=== PATIENT | female | born 1950 | race Caucasian/White ===

== ENCOUNTER 2021-08-22 18:39 | Inpatient (IN) | payer OTHER, SELFPAY ==
--- NOTE | ~2021-08-22 | XR_ITS ---
EXAMINATION: XR surgery orthopedic DATE: 08/23/2021 17:31 INDICATION: Intertrochanteric fracture of proximal right femur. TECHNIQUE: 4 intraoperative fluoroscopic views of right hip were obtained. I was not present. Fluoros copy exposure time was 41 seconds. COMPARISON: Right hip radiographs 08/22/2021 FINDINGS: There is a comminuted intertrochanteric fracture of proximal right femur. The main distal f racture fragment demonstrates near-anatomic alignment status post open reduction internal fixation wi th antegrade intramedullary estela, femoral head/neck screw, and distal interlocking screw. IMPRESSION: 1. Comminuted intertrochanteric fracture of proximal right femur status post open reduction internal fixation. Reviewed, dictated and finalized at location A. IMPRESSION: 1. Comminuted intertrochanteric fracture of proximal right femur status post op en reduction internal fixation.
--- NOTE | ~2021-08-22 | XR_ITS ---
EXAM: XR hip RT 2V w AP pelvis HISTORY: fall/RT hip pain GROIN PAIN COMPARISON: 01/13/2012 FINDINGS: A medication pump or electric stimulator projects over the right lower quadrant. Partially visualized lumbar fusion hardware. Comminuted intertrochanteric right femoral fracture, one dominant fragment is the lesser trochanter. No other fracture. No dislocation. IMPRESSION: Comminuted intertrochanteric right femoral fracture. Reviewed, dictated and finalized at location K.
--- NOTE | ~2021-08-22 | XR_ITS ---
EXAMINATION: XR chest 1V portable Exam Date/Time: 08/22/2021 19:35 CDT CLINICAL HISTORY: preop Comparison: EXAMINATION: XR chest 1V portable Exam Date/Time: 08/22/2021 19:35 CDT CLINICAL HISTORY: preop Comparison: EXAMINATION: XR chest 1V portable Exam Date/Time: 08/22/2021 19:35 CDT CLINICAL HISTORY: preop Comparison: 08/11/18. RESULT: Lines, tubes, and devices: None. Lungs and pleura: No focal consolidation or pneumothorax. 2.8 cm left midlung nodule, new. Cardiomediastinal silhouette: Stable cardiomediastinal silhouette. Other: No acute osseous or upper abdominal finding. IMPRESSION: New pulmonary nodule versus artifact. Consider PA and lateral views the chest for further evaluation. . RESULT: Lines, tubes, and devices: None. Lungs and pleura: Clear. Cardiomediastinal silhouette: Stable cardiomediastinal silhouette. Other: No acute osseous or upper abdominal finding. IMPRESSION: No acute cardiopulmonary process . RESULT: Lines, tubes, and devices: None. Lungs and pleura: Clear. Cardiomediastinal silhouette: Stable cardiomediastinal silhouette. Other: No acute osseous or upper abdominal finding. IMPRESSION: No acute cardiopulmonary process Reviewed, dictated and finalized at location K. IMPRESSION: New pulmonary nodule versus artifact. Consider PA and lateral views the chest f or further evaluation. . RESULT: Lines, tubes, and devices: None. Lungs and pleura: Clear. Cardiomediastinal silhouette: Stable cardiomediastinal silhouette. Other: No acute osseous or upper abdominal finding. IMPRESSION: No acute cardiopulmonary process . RESULT: Lines, tubes, and devices: None. Lungs and pleura: Clear. Cardiomediastinal silhouette: Stable cardiomediastinal silhouette. Other: No acute osseous or upper abdominal finding.
--- NOTE | ~2021-08-22 | CT_ITS ---
EXAMINATION: CT brain wo con INDICATION: Transient alteration of awareness COMPARISON: 06/22/2009 TECHNIQUE: Standard unenhanced head CT. The dose-length product (DLP) was 605.33 mGy-cm. The mA was a djusted according to patient size. Iterative reconstruction technique was employed. FINDINGS: There is no intracranial hemorrhage, acute infarction, or abnormal mass lesion. The ventric les are normal. There is no abnormal mass effect or midline shift. The hicks-white matter differentiat ion is normal. The basal cisterns are patent. Intracranial calcified cerebral atherosclerosis is noted. Changes in the globes are likely from ocula r lens surgery. The paranasal sinuses, mastoids and calvarium are normal. IMPRESSION: 1. No acute intracranial abnormality. Reviewed, dictated and finalized at location B.
--- NOTE | ~2021-08-22 | US_ITS ---
EXAMINATION: US carotid duplex BI DATE: 08/24/2021 18:34 INDICATION: Syncope. TECHNIQUE: Grayscale, color Doppler, and pulsed Doppler images of the cervical carotid arteries were obtained. The degree of vessel stenosis is placed in one of the following categories: normal, <50%, 5 0-69%, >=70% but less than near-occlusion, near-occlusion, or total occlusion. Note that percent sten osis relative to normal distal artery lumen diameter is indirectly measured from velocity measurement s as described by Joshua, et al. Radiology 2003; 229:340-346. COMPARISON: Ultrasound 09/12/2009 FINDINGS: RIGHT: The right common carotid artery (CCA) peak systolic velocity (PSV) is 117 cm/s. The right internal ca rotid artery (ICA) PSV is 141 cm/s. The right ICA end-diastolic velocity (EDV) is 31 cm/s. The right ICA/CCA PSV ratio is 1.2. Grayscale and color Doppler images yield an estimate of <50% diameter reduc tion from plaque in the ICA. There is antegrade flow in the right vertebral artery. LEFT: The left CCA PSV is 129 cm/s. The left ICA PSV is 76 cm/s. The left ICA EDV is 25 cm/s. The left ICA/ CCA PSV ratio is 0.6. Grayscale and color Doppler images yield an estimate of <50% diameter reduction from plaque in the ICA. There is antegrade flow in the left vertebral artery. IMPRESSION: 1. <50% stenosis in the right internal carotid artery. 2. <50% stenosis in the left internal carotid artery. Reviewed, dictated and finalized at location A.
[2021-08-22 18:43] VITALS: BP 160/96; PULSE 76; RESP 16; TEMP 36.2; O2SAT 96
--- NOTE | 2021-08-22 19:32 | ECG_ITS ---
Measurements Intervals [place] Rate: 93 P: 83 VT: 171 QRS: 55 QRSD: 100 T: 53 QT: 354 QTc: 441 Interpretive Statements SINUS RHYTHM POSSIBLE LEFT ATRIAL ENLARGEMENT BORDERLINE ECG Electronically Signed On 08-22-2021 20:05:04 CDT by Jovani Conde D.O.
[2021-08-22] MEDS: SODIUM CHLORIDE 0.9% IV 1,000 ML 150 ML IV CONT (20:02)
[2021-08-22] MEDS: MORPHINE SULFATE (*CRX) 4 MG/ML INJ IV PUSH (20:03)
[2021-08-22 20:35] LABS: Appearance Urine Cloudy (Clear); Bilirubin Urine 1+ (Negative); Blood Urine Negative (Negative); Color Urine Yellow (Yellow); Glucose Urine UA Negative (Negative); Ketones Urine Negative (Negative); Leukocyte Esterase Ur Negative LEU/UL (Negative); Nitrate Urine Negative (Negative); Protein Urine Negative (Negative); Specific Grav Ur 1.015 (1.001-1.035)
[2021-08-22 20:36] LABS: Basophils Percent Auto 0.3 % (0.2-1.2); Eosinophils Percent Auto 0.2 % (0-4.4); Hematocrit 34.5 % (37.0-47.0); Hemoglobin 12.4 g/dL (12.0-15.0); Immature Granulocyte Absolute 0.05 K/mm3 (0.00-0.031); Immature Granulocyte Percent A 0.5 % (0-0.5); Immature Platelet Fraction Pct 1.5 % (0.9-11.2); Lymphocytes Absolute Auto 0.44 K/mm3 (0.9-3.2); Lymphocytes Percent Auto 4.7 % (18.3-44.2); Mean Corpuscular HGB Conc 35.9 g/dl (32-36); Mean Corpuscular Volume 89.1 fl (80-100); Mean Platelet Volume 8.3 fl (7.4-10.4); Monocytes Absolute Auto 0.2 K/mm3 (0.1-0.6); Monocytes Percent Auto 2.5 % (2.6-8.5); Neutrophils Absolute Auto 8.6 K/mm3 (1.3-6.7); Neutrophils Percent Auto 91.8 % (45.5-73.1); Platelet Count Result 187 k/mm3 (150-375); Red Blood Count 3.87 M/mm3 (4.2-5.4); Red Cell Distribution Width 14.4 % (11.5-14.5); White Blood Count 9.3 K/mm3 (4.5-10.0)
[2021-08-22 20:42] LABS: Amorphous Sediment Urine Few; Squamous Epithelial Cell Urine Rare /hpf (Few)
[2021-08-22 20:46] LABS: Alanine Aminotransferase 12 U/L (4-35); Albumin Level 4.1 g/dL (3.5-5.1); Alkaline Phosphatase 152 U/L (38-126); Anion Gap 4 mmol/L (8-16); Aspartate Amino Transferase 25 U/L (14-36); Bilirubin,Total 1.1 mg/dL (0.2-1.3); Blood Urea Nitrogen 12 mg/dL (7-17); Calcium 11.1 mg/dL (8.4-10.2); Carbon Dioxide 25 mmol/L (22-30); Chloride 95 mmol/L (98-107); Estimated Glomerular Filt Rate > 60; Glucose 129 mg/dL (65-110); Potassium 3.4 mmol/L (3.4-5.0); Sodium 124 mmol/L (137-145)
[2021-08-22 20:47] LABS: Add Urine Microscopic? YES
[2021-08-22 20:57] LABS: INR 1.2; Prothrombin Time 14.9 Seconds (11.1-14.7)
--- NOTE | 2021-08-22 21:01 | ED.FALL ---
HPI - Fall General Chief Complaint: Fall Stated Complaint: FALL/RT HIP DEFORMITY Time Seen by Provider: 08/22/21 18:48 Source: patient Mode of arrival: EMS Limitations: no limitations History of Present Illness HPI Narrative: 71-year-old with a history of COPD, hypertension, anxiety here with complaints of right hip pain. Patient states that she was trying to sweet pickled fruit maker something from the floor lost her balance and fell on the right hip she denies any head and neck injury. She denies any other injuries. complaint: fall Onset (ago): hour(s) (1) Fall from: standing Fall witnessed: yes, by family Place fall occurred: home Loss of consciousness: none Symptoms prior to fall: none Context: tripped/slipped Location of injury: pelvis (right hip) Severity: moderate Quality: aching Associated symptoms (after fall): denies Related Data Home Medications Medication Instructions Recorded Confirmed guanfacine 1 mg tablet 1 mg PO .COMPLEX 03/16/19 08/17/21 Calcium 600 + D(3) 600 tablet DAILY 04/26/19 08/17/21 cholecalciferol (vitamin D3) 5,000 unit PO DAILY 04/26/19 08/17/21 aspirin 81 mg tablet,delayed 81 mg PO DAILY 01/22/21 08/17/21 release Allergies Allergy/AdvReac Type Severity Reaction Status Date / Time No Known Allergies Allergy Verified 08/22/21 18:45 Review of Systems Review of Systems: All systems reviewed & are unremarkable except as noted in HPI and below Constitutional: Constitutional: Reports no additional constitutional complaints Eyes: Eyes: Reports no additional eye complaints ENT: Reports system reviewed and no additional complaints, except as documented Cardiovascular: Cardiovascular: Reports no additional cardiovascular complaints Respiratory: Respiratory: Reports no additional respiratory complaints Gastrointestinal: Gastrointestinal: Reports no additional gastrointestinal complaints Genitourinary: Genitourinary: Reports no additional female genitourinary complaints Musculoskeletal: Musculoskeletal: Reports as per HPI Integumentary/Breasts: Skin/Breast: Reports system reviewed and no additional complaints, except as docu Neurologic: Reports system reviewed and no additional complaints, except as documented PMFSH Past Medical History Medical History Actinic keratosis of multiple sites of head and neck Anxiety Asthma with COPD Chronic hyponatremia Encounter for screening colonoscopy Essential (primary) hypertension Ganglion cyst Hemochromatosis Hyperlipidemia, unspecified Major depressive disorder, recurrent, in remission, unspecified Meniere's disease, bilateral Nicotine dependence, other tobacco product, uncomplicated Osteoporosis Took Fosamax 2014 - 11/2019 Polyosteoarthritis, unspecified Postmenopausal Presence of implanted infusion pump Ventral hernia Surgical History Surgical History History of carpal tunnel release Family History Family History Sibling Patient's sister is in good health Family history of malignant neoplasm Breast cancer, Onset Age: 72 Lorenza in 06/2013 Heart disease brother Melanoma in situ of cheek, Onset Age: 68 brother: Gregor @ 69 Mother Family history of lung cancer, Onset Age: 65 oat cell carcinoma: dx'd passed @ 65 y/o Patient's mother is Family history of malignant neoplasm Hypertension Depression Father , from kidney failure @ 90 y/o: lived w/ his second in [place] Family history of congenital heart disease Family history of cardiovascular disease, Onset Age: 91 Angina at rest Heart disease Social History Social History Smoking packs per day: 0.75 Smoking cigarettes per day: 15.0 Years smoked: 54 Smoking pack-years: 40.50 Smoking status:
[2021-08-22 21:14] LABS: SARS-CoV-2 RNA PCR Negative
[2021-08-22 21:23] VITALS: BP 157/90; PULSE 88; RESP 16; O2SAT 100
[2021-08-22] MEDS: HYDROmorphone HCL INJ (*CRX) 1 MG/ML SYR IV PUSH (21:57)
[2021-08-22 22:20] VITALS: BP 157/94; PULSE 90; RESP 16; O2SAT 97
[2021-08-22 23:26] VITALS: BP 128/72; PULSE 88; RESP 16; TEMP 36.1; O2SAT 92; BMI 25.8
--- NOTE | 2021-08-22 23:54 | ADMGEN ---
This patient, Poonam Sousa, was admitted to [facility] Surg Room 321-01 at 22:50 . Patient/family oriented to hospital policies and general routines including ID bracelet, bed and alarms, visiting hours, pain management, procedures, bathroom and other care routines, personal items, smoking policy, room service/diet, and visiting hours. Information on how to activate the Rapid Response Team has been discussed. Patient/Family are encouraged to report perceived risks to care and to ask questions if they do not understand what they are told or what they should do.
[2021-08-23] VITALS (21 sets, daily range): BP systolic 123–149; BP diastolic 65–82; PULSE 73–101; RESP 14–19; TEMP 36.1–36.9; O2SAT 82–100
[2021-08-23] MEDS: SODIUM CHLORIDE 0.9% IV 1,000 ML 75 ML IV CONT ×2 (02:37→13:36)
[2021-08-23] MEDS: ALBUTEROL SULFATE NEB 2.5 MG/0.5 ML INH 5 MG INHALATION ×3 (02:41→20:05)
[2021-08-23] MEDS: IPRATROPIUM BR 0.02% INH SOLN 0.5 MG/2.5 ML VIAL INHALATION ×3 (02:41→20:05)
[2021-08-23] MEDS: MORPHINE SULFATE (*CRX) 4 MG/ML INJ IV PUSH (06:21)
--- NOTE | 2021-08-23 07:28 | PM.CNOR ---
Assessment and Plan Assessment and plan (1) Intertrochanteric fracture of right hip: Qualifiers: Encounter type: initial encounter Fracture type: closed Fracture alignment: displaced Qualified Code(s): S72.141A - Displaced intertrochanteric fracture of right femur, initial encounter for closed fracture Code(s): S72.141A - Displaced intertrochanteric fracture of right femur, initial encounter for closed fracture Status: Acute Assessment and Plan: New patient evaluation for chief complaint History, physical exam and radiographs reviewed with the patient. Discussed the condition, nature, etiology and course of natural history with the patient. Treatment options including surgical and nonoperative treatment were reviewed. Risks and benefits of each as well as alternatives reviewed. The patient's questions were answered. Conservative treatment ice, pain med, mechanical dvt px. Surgery when stable. Discussed nonoperative and operative treatment options with the patient. Risks and benefits of each as well as alternatives were reviewed. All of the patient's questions were answered. The risks of surgery reviewed including but not limited to: Neurovascular damage, wound complication, infection, blood clot, pulmonary embolus, stroke, myocardial infarction, and anesthetic risks up to and including . Continued pain and possible dysfunction were explained. Specific risks of the procedure including later recurrence of deformity. No guarantees were offered. If hardware used, discussed risk of failure/ breakage and possible need for removal. If complications occur, the patient understands the need for further treatment, possible further surgery. Patient verbalizes understanding and wishes to proceed. PLAN:RT hip trochanteric nail History of Present Illness HPI Consult date: 08/23/21 Requesting physician: Zoltan Jeter MD Chief complaint: Right Hip Fracture Narrative: 71 yo woman fell in kitchen last night. RT hip pain. H/O falls recently. Unable to walk. RT hip fx on xray. Review of Systems Review of Systems: All systems reviewed & are unremarkable except as noted in HPI and below Constitutional: Constitutional: Reports no additional constitutional complaints Eyes: Eyes: Reports no additional eye complaints ENT: Reports system reviewed and no additional complaints, except as documented Cardiovascular: Cardiovascular: Reports no additional cardiovascular complaints Respiratory: Respiratory: Reports no additional respiratory complaints Gastrointestinal: Gastrointestinal: Reports no additional gastrointestinal complaints Genitourinary: Genitourinary: Reports no additional female genitourinary complaints Musculoskeletal: Musculoskeletal: Reports as per HPI Integumentary/Breasts: Skin/Breast: Reports system reviewed and no additional complaints, except as docu Neurologic: Reports system reviewed and no additional complaints, except as documented PMFSH Past Medical History Medical History (Updated 08/23/21 @ 07:31 by Mani Wasserman MD) Actinic keratosis of multiple sites of head and neck Anxiety Asthma with COPD Chronic hyponatremia Encounter for screening colonoscopy Essential (primary) hypertension Ganglion cyst Hemochromatosis Hyperlipidemia, unspecified Intertrochanteric fracture of right hip Major depressive disorder, recurrent, in remission, unspecified Meniere's disease, bilateral Nicotine dependence, other tobacco product, uncomplicated Osteoporosis Took Fosamax 11/2019 Polyosteoarthritis, unspecified Postmenopausal Presence of implanted infusion pump Ventral hernia Surgical History Surgical History History of carpal tunnel release Family History Family History Sibling Patient's sister is in good health Family history of malignant neoplasm Breast canc
[2021-08-23 08:16] LABS: Anion Gap 4 mmol/L (8-16); Blood Urea Nitrogen 11 mg/dL (7-17); Calcium 10.4 mg/dL (8.4-10.2); Carbon Dioxide 25 mmol/L (22-30); Chloride 96 mmol/L (98-107); Estimated Glomerular Filt Rate > 60; Glucose 101 mg/dL (65-110); Potassium 3.2 mmol/L (3.4-5.0); Sodium 125 mmol/L (137-145)
--- NOTE | 2021-08-23 08:18 | PC.NURSE ---
pt wishes to wait on home meds at this time due to being NPO, will take clonazepam
[2021-08-23] MEDS: clonazePAM (*CRX) 0.5 MG TABLET PO ×2 (08:19→23:25)
--- NOTE | 2021-08-23 08:38 | PM.IMHP ---
H&P: HPI History of Present Illness Date/Time: 08/23/21 08:38 Chief Complaint: fall, hip pain Narrative: Pt is a 71 yo female w/ hx of HTN, HLD, COPD, depression, anxiety, osteoporosis, chronic hyponatremia, hemochromatosis, current smoker, who presented to the yesterday evening with right hip pain after a mechanical fall. Pt states she bent down to grab the trash when she lost her balance and fell, landing on her R hip. She was unable to get up so she called the ambulance and was brought to the ED. She currently has no pain with rest but significant pain with any type of movement. No preceding symptoms to the fall including cp, sob, dizziness. She saw her pcp last week and received a call this past Friday that she had a UTI and Macrobid was called in which she picked up yesterday but has not started yet. She admits to intermittent dysuria but denies fever, chills, N/V, abd pain. No recent cough or cold symptoms. Preliminary workup in the ED significant for comminuted right intertrochanteric femur fracture. Orthopedic surgery was consulted and patient was admitted as inpatient status for anticipated greater than two midnights. Review of Systems Review of Systems: General: Denies fevers, chills, bodyaches, or fatigue Eyes: Denies vision changes or eye pain ENT: Denies nasal congestion or sore throat Respiratory: Denies cough or shortness of breath Cardiovascular: Denies chest pain, palpitations, or lower extremity edema Gastrointestinal: Denies abdominal pain, vomiting, or diarrhea Genitourinary: + dysuria, denies urinary frequency Musculoskeletal: +right hip pain Neurological: Denies headache, paraesthesias, or motor weakness Integumentary: Denies rash Psychiatric: Denies SI/[facility] Past Medical History Medical History (Updated 08/23/21 @ 08:51 by Candie Hightower PA-C) Actinic keratosis of multiple sites of head and neck Anxiety Asthma with COPD Chronic hyponatremia Essential (primary) hypertension Hemochromatosis Hyperlipidemia, unspecified Intertrochanteric fracture of right hip Major depressive disorder, recurrent, in remission, unspecified Meniere's disease, bilateral Nicotine dependence, other tobacco product, uncomplicated Osteoporosis Took Fosamax 11/2019 Polyosteoarthritis, unspecified Postmenopausal Presence of implanted infusion pump Ventral hernia Surgical History Surgical History History of carpal tunnel release History of tonsillectomy History of ventral hernia repair Previous back surgery Family History Family History Sibling Patient's sister is in good health Family history of malignant neoplasm Breast cancer, Onset Age: 72 Lorenza in 06/2013 Heart disease brother Melanoma in situ of cheek, Onset Age: 68 brother: Gregor @ 69 Mother Family history of lung cancer, Onset Age: 65 oat cell carcinoma: dx'd passed @ 65 y/o Patient's mother is Family history of malignant neoplasm Hypertension Depression Father , from kidney failure @ 90 y/o: lived w/ his second in [place] Family history of congenital heart disease Family history of cardiovascular disease, Onset Age: 91 Angina at rest Heart disease Social History Social History (Updated 08/23/21 @ 08:48 by Candie Hightower PA-C) Smoking packs per day: 0.75 Smoking cigarettes per day: 15.0 Years smoked: 54 Smoking pack-years: 40.50 Smoking status: Current every day smoker Tobacco type: cigarettes Second hand tobacco smoke exposure: Yes Alcohol intake: never Alcohol use details: pt states that she has no alcoholic beverages Substance use: never Additional living arrangements comments: passed recently May 2021, now lives alone but is selling house and moving to [facility] with her daughter Additional
[2021-08-23] MEDS: HYDROmorphone HCL INJ (*CRX) 1 MG/ML SYR IV PUSH (10:54)
--- NOTE | 2021-08-23 11:50 | PC.NURSE ---
surgery SBAR faxed
--- NOTE | 2021-08-23 14:56 | SUR.PREOP ---
1440- PT ARRIVED TO PRE OP AREA. VITALS OBTAINED. OXYGEN LEVELS 87-89% ON ROOM AIR. HAD PT TAKE SOME DEEP BREATHS AND CLEAR HER THROAT. PT OXYGEN LEVELS STILL 88%. PT PLACED ON 2L NC. OXYGEN LEVELS 93%.
[2021-08-23] MEDS: ACETAMINOPHEN 500 MG TABLET 1000 MG PO (15:07)
[2021-08-23] MEDS: KETOROLAC 15 MG/ML VIAL (*BKC) IV PUSH (15:08)
[2021-08-23] MEDS: TRANEXAMIC ACID 1,000MG/ISO100 1,000 MG/100 ML BAG 200 MG IVPB (15:08)
--- NOTE | 2021-08-23 15:27 | PCCCNOTE ---
On 08/23/21, the student, [Thelma Mondragon], provided care and completed [facility] documentation on this patient. I have reviewed the student's documentation and agree with the findings.
--- NOTE | 2021-08-23 16:01 | WPDANESEPPF ---
Anes - Initial Pre Proc Eval Procedure: Operation Date: 08/23/21 16:00 Proposed Procedures p Right Intertrochanteric Nail - Mani Wasserman MD Date/Time: 08/23/21 16:01 Surgeon: Candie Hightower PA-C Pre Op Diagnosis: Right Hip Fracture Patient Data Age: 71 Gender: F Height: 1.5 m Weight: 58 kg Last Vital Signs Temp 36.7 C 08/23/21 14:53 Pulse 89 08/23/21 14:53 Resp 16 08/23/21 14:53 BP 140/65 08/23/21 14:53 Pulse Ox 93 08/23/21 14:53 Allergies Allergy/AdvReac Type Severity Reaction Status Date / Time No Known Allergies Allergy Verified 08/23/21 14:52 Home Medications Medication Instructions Recorded Confirmed Type guanfacine 1 mg tablet 1 mg PO .COMPLEX 03/16/19 08/22/21 History Calcium 600 + D(3) 600 tablet DAILY 04/26/19 08/22/21 History cholecalciferol (vitamin D3) 5,000 unit PO DAILY 04/26/19 08/22/21 History hydrochlorothiazide 25 mg tablet 25 mg PO DAILY #90 tablet 12/08/20 08/22/21 Rx amitriptyline 25 mg tablet See Rx Instructions .ROUTE 12/21/20 08/22/21 Rx .COMPLEX #180 tablet fluticasone 500 mcg-salmeterol 50 1 inh INHALATION Q12H #60 ea 01/19/21 08/22/21 Rx mcg/dose blistr powdr for inhalation aspirin 81 mg tablet,delayed 81 mg PO DAILY 01/22/21 08/22/21 History release pravastatin 20 mg tablet 20 mg PO DAILY #90 tablet 02/12/21 08/22/21 Rx clonazepam 0.5 mg tablet 0.5 mg PO BID PRN #60 tablet 02/15/21 08/22/21 Rx pantoprazole 40 mg tablet,delayed 40 mg PO QAM #90 tablet 03/06/21 08/22/21 Rx release potassium chloride 10 mEq 10 meq PO DAILY #90 cap 04/30/21 08/22/21 Rx capsule,extended release albuterol sulfate 90 mcg/actuation 2 puff INHALATION Q4H PRN #8.5 g 05/01/21 08/22/21 Rx aerosol inhaler carvedilol 25 mg tablet 25 mg PO BID #180 tablet 06/21/21 08/22/21 Rx losartan 100 mg tablet 100 mg PO DAILY #90 tablet 06/21/21 08/22/21 Rx sertraline 100 mg tablet 200 mg PO DAILY #180 tablet 07/19/21 08/22/21 Rx nitrofurantoin 100 mg PO Q12H 5 Days #10 cap 08/18/21 08/22/21 Rx monohydrate/macrocrystals 100 mg capsule Laboratory Tests 08/22/21 08/22/21 08/22/21 20:18 20:20 20:20 WBC 9.3 K/mm3 K/mm3 (4.5-10.0) RBC 3.87 M/mm3 L M/mm3 (4.2-5.4) Hgb 12.4 g/dL g/dL (12.0-15.0) Hct 34.5 % L % (37.0-47.0) MCV 89.1 fl fl (80-100) MCH 32.0 pg pg (26-34) MCHC 35.9 g/dl g/dl (32-36) RDW 14.4 % % (11.5-14.5) Plt Count 187 k/mm3 k/mm3 (150-375) MPV 8.3 fl fl (7.4-10.4) Immature Gran % (Auto) 0.5 % % (0-0.5) Neut % (Auto) 91.8 % H % (45.5-73.1) Lymph % (Auto) 4.7 % L % (18.3-44.2) [place] % (Auto) 2.5 % L % (2.6-8.5) Eos % (Auto) 0.2 % % (0-4.4) Baso % (Auto) 0.3 % % (0.2-1.2) Lymph # (Auto) 0.44 K/mm3 L K/mm3 (0.9-3.2) [place] # (Auto) 0.2 K/mm3 K/mm3 (0.1-0.6) Eos # (Auto) 0.0 K/mm3 K/mm3 (0-0.3) Baso # (Auto) 0.0 K/mm3 K/mm3 (0.0-0.1) Abs Immat Gran (auto) 0.05 K/mm3 H K/mm3 (0.00-0.031) Absolute Neuts (auto) 8.6 K/mm3 H K/mm3 (1.3-6.7) Absolute Nucleated RBC 0.0 K/mm3 K/mm3 (0.0-0.012) Nucleated RBC % 0.0 % % (0.0-0.2) % Immature Plt Fraction 1.5 % % (0.9-11.2) PT 14.9 Seconds H Seconds (11.1-14.7) INR 1.2 Sodium Potassium Chloride Carbon Dioxide Anion Gap BUN Creatinine Estim Creat Clear Calc Estimated GFR Glucose Calcium Total Bilirubin AST ALT Alkaline Phosphatase Total Protein Albumin Urine Color Urine Appearance Urine pH Ur Specific [place] Urine Protein U
[2021-08-23] MEDS: ceFAZolin 2 GM/D5W 50 ML 2 GM/50 ML BAG IVPB (16:26)
--- NOTE | 2021-08-23 17:49 | P.OP_ITS ---
Procedure Note - Detailed Date of Procedure 08/23/21 Pre-op Diagnosis Right Hip Fracture, intertrochanteric Post-op Diagnosis Same Procedure Performed Trochanteric nail right hip Surgeon Mani Wasserman MD Tire Mold Tester 1st speech language pathology assistant Anesthesia General Indications 71-year-old woman with right hip intertrochanteric fracture. Presents for operative treatment. Full discussion with the patient regarding risks, benefits and alternatives of surgery. Patient and daughter questions answered and verbalized understanding. They would like to proceed. Consent given. Description of Procedure After informed consent the operative extremity was marked in the preoperative holding area. Patient received intravenous antibiotics. The patient was taken to the operative room, placed in the supine position, general anesthesia induced by the anesthesia team, and was placed on a fracture table with longitudinal traction applied to the right leg. The hip fracture was reduced to near anatomic position and verified with image intensification. A time-out was performed confirming the patient, site of the surgery and plan. The right lower extremity was prepped and draped sterilely from the knee to the iliac crest region using a ChloraPrep skin solution. Incision was made just proximal to greater trochanter down to the subcutaneous tissues. Hemostasis controlled with electrocautery. Blunt dissection through the fascia to the tip of the greater trochanter. A starter awl was placed at the tip of the greater trochanter into the medullary canal of the femur. This was checked with image intensification and was in good position. Intramedullary guide estela positioned. A one-step hand reaming done proximally. Intramedullary canal was reamed with a 12.5 millimeter flexible reamer. Neck angle selected off of preoperative radiographs temp plating. 125 degree 11mm X 21.5cm Nail opened on the back table and assembled. This was then inserted over the guide estela to the correct depth. Guide estela removed. Lag screw was then placed with a stab incision over the lateral femur using a 10 blade knife. Blunt dissection down to the lateral side of the bone. Soft tissue protectors placed. Guide pin placed in the center center position of the femoral head and measured. 90 millimeter x 10.5 millimeter lag screw placed to correct depth and verified with image intensification. Traction released from the leg and compression of the fracture performed with the external compression device. Distal locking of the nail then performed. Stab incision made lateral distal thigh. Blunt dissection down lateral side of the femur. Soft tissue protector placed. Femur drilled from lateral to medial through the distal nail. Distal femur measured and the appropriate size screw placed (34mm). Image intensification confirmed the placement through the locking hole. Final image intensification confirmed reduction of the fracture and placement of the hardware. Wounds then thoroughly irrigated with antibiotic solution. Fascia repaired with 0 Vicryl interrupted suture. Subcutaneous tissue repaired with 00 Vicryl interrupted suture and skin repaired with anjali. Sterile dressings applied. Patient then awoke from anesthesia, extubated, taken to recovery room stable condition. All sponge, needle and instrument counts correct at the end the case. Implants Arthrex 125 degree 11 mm short nail with 90 mm lag screw and 34 mm distal locking screw Estimated Blood Loss 50 Drains No Packing No Pathology None sent Complications None Condition Stable Disposition PACU
[2021-08-23] MEDS: LACTATED RINGERS 1,000 ML 30 ML IV CONT (18:08)
--- NOTE | 2021-08-23 18:57 | PC.NURSE ---
report received from PACU, pt is doing well, daughter is in room waiting for pt, updated
--- NOTE | 2021-08-23 19:20 | PC.NURSE ---
pt arrived back from OR via bed, resting comfortably
[2021-08-23] MEDS: FLUTICASONE/SALMETEROL 230-21 MCG INHALER 1 PUFF 2 PUFF INHALATION (20:05)
[2021-08-23] MEDS: HYDROcodone/acetaminophen (*CRX) 5-325 MG TABLET 1 TAB PO (21:28)
[2021-08-23] MEDS: guanFACINE HCL 1 MG TABLET PO (21:28)
[2021-08-23] MEDS: AMITRIPTYLINE HCL 25 MG TABLET 50 MG BY MOUTH (21:29)
[2021-08-23] MEDS: FAMOTIDINE 20 MG TABLET PO (21:29)
[2021-08-23] MEDS: ACETAMINOPHEN 325 MG TABLET 650 MG PO (23:55)
[2021-08-24] VITALS (14 sets, daily range): BP systolic 105–141; BP diastolic 69–75; PULSE 68–83; RESP 18–20; TEMP 36.1–36.5; O2SAT 92–99
--- NOTE | 2021-08-24 | ECHO_ITS ---
Patient Info Name: Poonam Sousa Age: 71 years : 1950 Gender: Female Ht: 59 in Wt: 127 lbs BSA: 1.56 m2 HR: 78 bpm BP: 140 / 72 mmHg Technical Quality: Fair Exam Date: 08/24/2021 1:53 PM Exam Location: [facility] Exam Room: 321 Patient Status: Inpatient Admit Date: 08/22/2021 Staff Ordering Physician: Mani Wasserman MD Acid Recovery Operator: Mayda Lee RDCS Attending Provider: Dai Gaspar Referring Physician: Lux ELIZALDE; Exam Type: CA echo doppler color flow Study Info Indications - SYNCOPE Complete two-dimensional, color flow and Doppler transthoracic echocardiogram is performed. History/Risk Factors Hypertension: Yes Summary 1. Complete two-dimensional, color flow and Doppler transthoracic echocardiogram is performed. 2. Left ventricular chamber dimension is normal. 3. Left ventricular systolic function is normal, estimated at 65-70%. 4. The left ventricular diastolic function is grade I diastolic dysfunction. 5. E/e' 11 is mildly elevated. 6. Left atrial chamber dimension is mildly enlarged. 7. There is mild aortic valve sclerosis. 8. The mitral valve has moderately calcified annulus. 9. There is mild tricuspid valve regurgitation. 10. No pulmonary hypertension, estimated pulmonary arterial systolic pressure is 39 mmHg. Left Ventricle E/e' 11 is mildly elevated. Left ventricular chamber dimension is normal. Left ventricular systolic function is normal, estimated at 65-70%. The left ventricular diastolic function is grade I diastolic dysfunction. Right Ventricle Right ventricular chamber dimension is normal. Right ventricular systolic function is normal. Left Atria Left atrial chamber dimension is mildly enlarged. Right Atria Right atrial chamber dimension is normal. Aortic Valve The aortic valve is trileaflet. There is mild aortic valve sclerosis. There is no aortic valve stenosis. There is no aortic valve regurgitation. Pulmonic Valve There is no pulmonic regurgitation. Mitral Valve The mitral valve has moderately calcified annulus. There is no mitral valve stenosis. There is no mitral valve regurgitation. Tricuspid Valve There is mild tricuspid valve regurgitation. No pulmonary hypertension, estimated pulmonary arterial systolic pressure is 39 mmHg. Pericardium/Pleural There is no pericardial effusion. Inferior Vena Cava Normal inferior vena cava with >50% collapse upon inspiration consistent with normal right atrial pressure, 5 mmHg. Aorta The aortic root size at the sinus of Valsalva is normal. Left Ventricular Outflow Tract Name Value Normal LVOT 2D LVOT Diameter 2.0 cm LVOT Doppler LVOT Peak Gradient 7 mmHg LVOT Mean Gradient 4 mmHg LVOT VTI 24 cm LVOT VTI/AV VTI Ratio 0.8 LVOT Stroke Volume 74 ml LVOT CO 17.0 l/min LVOT CI 10.9 l/min/m2 Pulmonic Valve
[2021-08-24] MEDS: SODIUM CHLORIDE 0.9% IV 1,000 ML 125 ML IV CONT ×3 (00:32→21:04)
[2021-08-24] MEDS: IPRATROPIUM BR 0.02% INH SOLN 0.5 MG/2.5 ML VIAL INHALATION ×4 (02:24→19:49)
[2021-08-24] MEDS: ALBUTEROL SULFATE NEB 2.5 MG/0.5 ML INH 5 MG INHALATION ×4 (02:25→19:49)
[2021-08-24] MEDS: ACETAMINOPHEN 325 MG TABLET 650 MG PO (06:35)
[2021-08-24 07:04] LABS: Basophils Percent Auto 0.2 % (0.2-1.2); Eosinophils Percent Auto 0.9 % (0-4.4); Hematocrit 28.7 % (37.0-47.0); Immature Granulocyte Absolute 0.02 K/mm3 (0.00-0.031); Immature Granulocyte Percent A 0.5 % (0-0.5); Lymphocytes Absolute Auto 0.41 K/mm3 (0.9-3.2); Lymphocytes Percent Auto 9.3 % (18.3-44.2); Mean Corpuscular HGB Conc 34.8 g/dl (32-36); Mean Corpuscular Hemoglobin 32.2 pg (26-34); Mean Corpuscular Volume 92.3 fl (80-100); Mean Platelet Volume 8.3 fl (7.4-10.4); Monocytes Absolute Auto 0.2 K/mm3 (0.1-0.6); Monocytes Percent Auto 4.8 % (2.6-8.5); Neutrophils Absolute Auto 3.7 K/mm3 (1.3-6.7); Neutrophils Percent Auto 84.3 % (45.5-73.1); Platelet Count Result 100 k/mm3 (150-375); Red Blood Count 3.11 M/mm3 (4.2-5.4); Red Cell Distribution Width 14.8 % (11.5-14.5); White Blood Count 4.4 K/mm3 (4.5-10.0)
[2021-08-24 07:30] LABS: Potassium 3.6 mmol/L (3.4-5.0)
[2021-08-24 07:31] LABS: Alanine Aminotransferase 10 U/L (4-35); Albumin Level 2.9 g/dL (3.5-5.1); Alkaline Phosphatase 100 U/L (38-126); Anion Gap 5 mmol/L (8-16); Aspartate Amino Transferase 27 U/L (14-36); Bilirubin,Total 0.6 mg/dL (0.2-1.3); Blood Urea Nitrogen 9 mg/dL (7-17); Calcium 9.2 mg/dL (8.4-10.2); Carbon Dioxide 22 mmol/L (22-30); Chloride 100 mmol/L (98-107); Estimated Glomerular Filt Rate > 60; Glucose 99 mg/dL (65-110); Sodium 127 mmol/L (137-145)
[2021-08-24] MEDS: POTASSIUM CHLORIDE 10 MEQ TABLET.ER PO (08:12)
[2021-08-24] MEDS: HYDROmorphone HCL INJ (*CRX) 1 MG/ML SYR IV PUSH (08:12)
[2021-08-24] MEDS: hydroCHLOROthiazide 25 MG TABLET PO (08:12)
[2021-08-24] MEDS: PANTOPRAZOLE 40 MG TABLET PO (08:12)
[2021-08-24] MEDS: carvediloL 25 MG TABLET PO ×2 (08:12→16:08)
[2021-08-24] MEDS: LOSARTAN POTASSIUM 100 MG TABLET PO (08:13)
[2021-08-24] MEDS: PRAVASTATIN SODIUM 20 MG TABLET PO (08:13)
[2021-08-24] MEDS: FAMOTIDINE 20 MG TABLET PO ×2 (08:13→21:01)
[2021-08-24] MEDS: SERTRALINE HCL 50 MG TABLET 200 MG PO (08:13)
[2021-08-24] MEDS: polyethylene glycoL 3350 17 GM POWD.PACK PO (08:14)
[2021-08-24] MEDS: ASPIRIN 325 MG ENTERIC TABLET 650 MG PO (08:15)
[2021-08-24] MEDS: SENNA/DOCUSATE SODIUM TABLET 2 TAB PO ×2 (08:15→16:07)
[2021-08-24] MEDS: CELECOXIB 200 MG CAPSULE PO ×2 (09:03→16:07)
[2021-08-24] MEDS: HYDROcodone/acetaminophen (*CRX) 5-325 MG TABLET 1 TAB PO ×3 (11:31→21:04)
--- NOTE | 2021-08-24 11:44 | PM.PNORT ---
Progress Note: A&P Assessment and Plan (1) Intertrochanteric fracture of right hip: Qualifiers: Encounter type: initial encounter Fracture type: closed Fracture alignment: displaced Qualified Code(s): S72.141A - Displaced intertrochanteric fracture of right femur, initial encounter for closed fracture Code(s): S72.141A - Displaced intertrochanteric fracture of right femur, initial encounter for closed fracture Status: Acute Assessment and Plan: POD #1 RT hip IT nail Pain control ASA for dvt px PT/OT, WBAT\ Placement (2) Syncope and collapse: Code(s): R55 - Syncope and collapse Status: Acute Assessment and Plan: Patient and family report 4-5 falls past weeks. Blackout and fall. Check head/ heart Subjective Subjective Date/Time Seen: 08/24/21 11:44 Post Op day: 1 Principal diagnosis: RT hip IT fx Interval history: POD 1. Sore right hip. Concerned about blacking out at home and falls Review of Systems Review of Systems: All systems reviewed & are unremarkable except as noted in HPI and below Constitutional: Constitutional: Reports no additional constitutional complaints Eyes: Eyes: Reports no additional eye complaints ENT: Reports system reviewed and no additional complaints, except as documented Cardiovascular: Cardiovascular: Reports no additional cardiovascular complaints Respiratory: Respiratory: Reports no additional respiratory complaints Gastrointestinal: Gastrointestinal: Reports no additional gastrointestinal complaints Genitourinary: Genitourinary: Reports no additional female genitourinary complaints Musculoskeletal: Musculoskeletal: Reports as per HPI Integumentary/Breasts: Skin/Breast: Reports system reviewed and no additional complaints, except as docu Neurologic: Reports dizziness, Reports syncope and Reports frequent falls Endocrine: Endocrine: Denies cold intolerance Hematologic/Lymphatic: Hematologic/Lymphatic: Denies easy bleeding Allergic/Immunologic: Allergic/Immunologic: Reports no additional allergic/immunologic complaints Exam Const: General: No confusion Orientation/consciousness: patient oriented x3 and No confusion HENMT: Head: normal to inspection, normocephalic and atraumatic Eyes: Conjunctivae: conjunctivae normal Sclera: sclerae normal Neck: Neck: supple and nontender Chest: Chest palpation & inspection: normal inspection of the chest Resp: Effort & Inspection: normal respiratory effort and no audible wheezes Cardio: Rate: regular rate Rhythm: regular rhythm GI: GI Palp: No abdominal tenderness and Yes Soft to palpation : General: Yes deferred Skin: General skin exam: no rashes or lesions noted Neuro: General: patient oriented x3 and No confusion Extrem: General: capillary refill normal Right upper extremity: normal to inspection Left upper extremity: normal to inspection Right lower extremity: hip/thigh Details: tenderness Location: of the hip Location: laterally and swelling Location: at the hip ( mild), ankle ( able to actively flex and extend ankle) Details: no tenderness and foot Details: normal capillary refill, toes with normal ROM, vascular exam Details: dorsalis pedis pulse present and normal capillary refill and motor-sensory exam Details: light-touch normal Location: in all toes; no tenderness Left lower extremity: normal to inspection, hip/thigh Details: no tenderness and no swelling, lower leg, ankle (no calf tenderness) Details: normal ROM; no tenderness and foot Details: normal capillary refill, vascular exam Details: dorsalis pedis pulse present and normal capillary refill and motor-sensory exam light-touch normal in all toes Other: RT hip dressings clean and dry. Muscles soft Psych: Mental Status: mental status grossly normal Objective Data Vital Signs Vital Signs: Vital Signs - 24 hr 08/23/21 14:53 08/23/21 17:50 08/23/21 18:05 Temperature 98.0 F 98.4 F Pulse Rate 89 91 91
--- NOTE | 2021-08-24 12:56 | PM.IMPN ---
Progress Note: A&P Assessment and Plan (1) Intertrochanteric fracture of right hip: Qualifiers: Encounter type: initial encounter Fracture type: closed Fracture alignment: displaced Qualified Code(s): S72.141A - Displaced intertrochanteric fracture of right femur, initial encounter for closed fracture Code(s): S72.141A - Displaced intertrochanteric fracture of right femur, initial encounter for closed fracture Status: Acute Assessment and Plan: - Surgical repair by Dr. Wasserman yesterday. - Surgery to manage all post-operative course including anticoagulation - PT evaluation and management. (2) COPD (chronic obstructive pulmonary disease): Qualifiers: COPD type: emphysema Emphysema type: unspecified Qualified Code(s): J43.9 - Emphysema, unspecified Code(s): J44.9 - Chronic obstructive pulmonary disease, unspecified Status: Acute Assessment and Plan: -stable, no acute issues -continue home meds -nebs prn - Monitor respiratory status. (3) Chronic hyponatremia: Code(s): E87.1 - Hypo-osmolality and hyponatremia Status: Chronic Assessment and Plan: - Etiology unknown. Baseline appears to be 120s, and it appears chronic. - Continue IVF, and stable today at 127. - We will continue to monitor Sodium levels with BMP's. - If trends down, consider fluid restriction, and consider salt tablets as needed. - Will order urine and serum osmolality as well as urine sodium. (4) UTI (urinary tract infection): Qualifiers: Urinary tract infection type: site unspecified Code(s): N39.0 - Urinary tract infection, site not specified Status: Acute Assessment and Plan: -reportedly started on Macrobid for UTI from her pcp due to a urine culture that was positive and she is symptomatic with dysuria, had not started the macrobid yet - Continue Rocephin here although the patient's urine here was not indicative of an acute infection. No culture pending. This is day #2 of Rocephin IV. Historical UTI's were searched and it is noted that the pt. does have a history of E.coli infections that are sensitive to Rocephin. (5) Essential (primary) hypertension: Code(s): I10 - Essential (primary) hypertension Status: Chronic Assessment and Plan: -stable, continue home meds - Monitoring. Time Spent With Patient Time with patient: 15 - 25 minutes Subjective Date/time seen: 08/24/21 12:56 This pt was examined at the bedside on POD #1 after having an IM nailing after sustaining a GLF. I spoke with the daughter at the bedside who was questioning me about when patient's CT scan would be performed and her heart evaluated. I was not aware of these things needing to be done and she then told me that the Orthopedic surgeon wanted them done, but none were placed that I saw in the chart. She endorses that the pt. had four falls in the past couple of weeks, and they did appear that she was syncopal. The pt. denies to me that she had any chest pain, dyspnea, change in vision or any other prodromal symptoms prior to these falls, but she did hit her head when it occurred on a couple of occasions. 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 She has taken Meclizine in the past without any relief of her symptoms. Currently she denies any CP, Dyspnea, numbness, tingling or any other complaints besides the expected post-operative pain. In the amount of time for me to complete rounds and he get to put in orders for a CT of the head, echo and carotid Dopplers apparently the patient's daughter had already spoken with Dr. Wasserman who came in to evaluate the patient and he placed orders for CT of the brain and for echo. Review of the chart from previous day from ER presentation to this point did not mention any recurrent, frequent falls in documentation, nor did any notes mention any further testing being done. This is
[2021-08-24] MEDS: FLUTICASONE/SALMETEROL 230-21 MCG INHALER 1 PUFF 2 PUFF INHALATION ×2 (13:41→19:50)
--- NOTE | 2021-08-24 14:43 | WPDANESPN ---
Anes - Prog Note Post-Op Date/Time: 08/24/21 14:43 Cardiovascular status: normal Respiratory status: normal Airway patency: baseline Mental status: baseline Post-Op hydration status: normal Vital Signs: Last Vital Signs Temp 36.1 C L 08/24/21 12:00 Pulse 69 08/24/21 12:00 Resp 18 08/24/21 12:00 BP 105/70 08/24/21 12:00 Pulse Ox 92 08/24/21 13:42 Pain Score (VAS): 2 I/O: Intake & Output 08/23/21 08/24/21 08/24/21 23:59 07:59 15:59 Intake Total 319 230 2474 Output Total 100 1200 Balance 100 -332 1640 Laboratory Tests 08/24/21 06:27 08/24/21 06:27 08/24/21 08/24/21 08/24/21 06:27 06:27 13:28 WBC 4.4 L RBC 3.11 L Hgb 10.0 L Hct 28.7 L MCV 92.3 MCH 32.2 MCHC 34.8 RDW 14.8 H Plt Count 100 L MPV 8.3 Immature Gran % (Auto) 0.5 Neut % (Auto) 84.3 H Lymph % (Auto) 9.3 L [place] % (Auto) 4.8 Eos % (Auto) 0.9 Baso % (Auto) 0.2 Lymph # (Auto) 0.41 L [place] # (Auto) 0.2 Eos # (Auto) 0.0 Baso # (Auto) 0.0 Abs Immat Gran (auto) 0.02 Absolute Neuts (auto) 3.7 Absolute Nucleated RBC 0.0 Nucleated RBC % 0.0 Sodium 127 L Potassium 3.6 Chloride 100 Carbon Dioxide 22 Anion Gap 5 L BUN 9 Creatinine 0.50 L Estim Creat Clear Calc Not Reportable Estimated GFR > 60 Glucose 99 Serum Osmolality Pending Calcium 9.2 Total Bilirubin 0.6 AST 27 ALT 10 Alkaline Phosphatase 100 Total Protein 6.0 L Albumin 2.9 L Post-procedural complaints: none Patient Feedback: Patient satisfied with anesthetic care.
--- NOTE | 2021-08-24 14:45 | PCCCNOTE ---
On 08/24/21, the student, [Tamiko Mondragon], provided care and completed [facility] documentation on this patient. I have reviewed the student's documentation and agree with the findings.
[2021-08-24 15:09] LABS: Sodium Urine Random 49 meq/L
[2021-08-24] MEDS: guanFACINE HCL 1 MG TABLET PO (21:01)
[2021-08-24] MEDS: AMITRIPTYLINE HCL 25 MG TABLET 50 MG BY MOUTH (21:01)
[2021-08-25] VITALS (17 sets, daily range): BP systolic 129–140; BP diastolic 60–72; PULSE 70–87; RESP 14–20; TEMP 36.2–36.4; O2SAT 87–96
[2021-08-25] MEDS: ALBUTEROL SULFATE NEB 2.5 MG/0.5 ML INH 5 MG INHALATION ×4 (01:52→20:00)
[2021-08-25] MEDS: IPRATROPIUM BR 0.02% INH SOLN 0.5 MG/2.5 ML VIAL INHALATION ×4 (01:52→20:00)
[2021-08-25 07:18] LABS: Basophils Percent Auto 0.4 % (0.2-1.2); Eosinophils Absolute Auto 0.1 K/mm3 (0-0.3); Eosinophils Percent Auto 1.8 % (0-4.4); Hemoglobin 7.3 g/dL (12.0-15.0); Immature Granulocyte Absolute 0.03 K/mm3 (0.00-0.031); Immature Granulocyte Percent A 1.1 % (0-0.5); Lymphocytes Absolute Auto 0.36 K/mm3 (0.9-3.2); Lymphocytes Percent Auto 12.6 % (18.3-44.2); Mean Corpuscular HGB Conc 34.9 g/dl (32-36); Mean Corpuscular Hemoglobin 32.3 pg (26-34); Mean Corpuscular Volume 92.5 fl (80-100); Mean Platelet Volume 8.5 fl (7.4-10.4); Monocytes Absolute Auto 0.2 K/mm3 (0.1-0.6); Monocytes Percent Auto 5.3 % (2.6-8.5); Neutrophils Absolute Auto 2.3 K/mm3 (1.3-6.7); Neutrophils Percent Auto 78.8 % (45.5-73.1); Platelet Count Result 83 k/mm3 (150-375); Red Blood Count 2.26 M/mm3 (4.2-5.4); Red Cell Distribution Width 14.7 % (11.5-14.5); White Blood Count 2.9 K/mm3 (4.5-10.0)
[2021-08-25 07:36] LABS: Alanine Aminotransferase 7 U/L (4-35); Albumin Level 2.7 g/dL (3.5-5.1); Alkaline Phosphatase 104 U/L (38-126); Anion Gap 4 mmol/L (8-16); Aspartate Amino Transferase 20 U/L (14-36); Bilirubin,Total 0.3 mg/dL (0.2-1.3); Blood Urea Nitrogen 12 mg/dL (7-17); Calcium 8.9 mg/dL (8.4-10.2); Carbon Dioxide 25 mmol/L (22-30); Chloride 101 mmol/L (98-107); Estimated Glomerular Filt Rate > 60; Glucose 106 mg/dL (65-110); Potassium 3.3 mmol/L (3.4-5.0); Sodium 130 mmol/L (137-145)
[2021-08-25 08:14] LABS: Hematocrit 20.9 % (37.0-47.0)
[2021-08-25] MEDS: LOSARTAN POTASSIUM 100 MG TABLET PO (08:27)
[2021-08-25] MEDS: carvediloL 25 MG TABLET PO ×2 (08:27→16:14)
[2021-08-25] MEDS: PRAVASTATIN SODIUM 20 MG TABLET PO (08:27)
[2021-08-25] MEDS: SENNA/DOCUSATE SODIUM TABLET 2 TAB PO ×2 (08:27→16:14)
[2021-08-25] MEDS: SERTRALINE HCL 50 MG TABLET 200 MG PO (08:27)
[2021-08-25] MEDS: polyethylene glycoL 3350 17 GM POWD.PACK PO (08:27)
[2021-08-25] MEDS: FAMOTIDINE 20 MG TABLET PO ×2 (08:27→20:14)
[2021-08-25] MEDS: CELECOXIB 200 MG CAPSULE PO ×2 (08:28→16:14)
[2021-08-25] MEDS: POTASSIUM CHLORIDE 10 MEQ TABLET.ER PO (08:28)
[2021-08-25] MEDS: PANTOPRAZOLE 40 MG TABLET PO (08:28)
[2021-08-25] MEDS: hydroCHLOROthiazide 25 MG TABLET PO (08:28)
[2021-08-25] MEDS: FLUTICASONE/SALMETEROL 230-21 MCG INHALER 1 PUFF 2 PUFF INHALATION ×2 (09:01→20:00)
[2021-08-25] MEDS: TUBING, BLOOD PLUM PUMP TUBING 1 EACH XX (09:17)
[2021-08-25] MEDS: SODIUM CHLORIDE 0.9% IV 250 ML 30 ML IV CONT (09:17)
[2021-08-25] MEDS: HYDROcodone/acetaminophen (*CRX) 5-325 MG TABLET 1 TAB PO ×2 (09:29→20:14)
--- NOTE | 2021-08-25 09:55 | PC.NURSE ---
pt to receive 1 unit of blood today, H&H 7.3/ 20.9, awaiting blood to be ready from lab
[2021-08-25] MEDS: ASPIRIN 325 MG ENTERIC TABLET 650 MG PO (10:05)
[2021-08-25 10:37] LABS: Hematocrit 24.4 % (37.0-47.0); Hemoglobin 8.3 g/dL (12.0-15.0); Mean Corpuscular Volume 94.2 fl (80-100); Mean Platelet Volume 8.6 fl (7.4-10.4); Platelet Count Result 92 k/mm3 (150-375); Red Blood Count 2.59 M/mm3 (4.2-5.4); White Blood Count 3.6 K/mm3 (4.5-10.0)
--- NOTE | 2021-08-25 10:58 | PC.NURSE ---
h&H on redraw 8.3.4 no blood needed at this time.
--- NOTE | 2021-08-25 11:03 | PM.IMPN ---
Progress Note: A&P Assessment and Plan (1) Intertrochanteric fracture of right hip: Qualifiers: Encounter type: initial encounter Fracture type: closed Fracture alignment: displaced Qualified Code(s): S72.141A - Displaced intertrochanteric fracture of right femur, initial encounter for closed fracture Code(s): S72.141A - Displaced intertrochanteric fracture of right femur, initial encounter for closed fracture Status: Acute Assessment and Plan: - Surgical repair by Dr. Wasserman this is postop day 2.. - Surgery to manage all post-operative course including anticoagulation - PT evaluation and management. (2) COPD (chronic obstructive pulmonary disease): Qualifiers: COPD type: emphysema Emphysema type: unspecified Qualified Code(s): J43.9 - Emphysema, unspecified Code(s): J44.9 - Chronic obstructive pulmonary disease, unspecified Status: Acute Assessment and Plan: -stable, no acute issues -continue home meds -nebs prn - Monitor respiratory status. -continue incentive spirometry post surgical intervention. (3) Chronic hyponatremia: Code(s): E87.1 - Hypo-osmolality and hyponatremia Status: Chronic Assessment and Plan: -baseline sodium is in the 120s. Patient's sodium today is 130. -osmolality is ordered. Her urine sodium level is normal at 49, urine osmolality and serum osmolality are both pending. -continue to monitor with metabolic panels. Consider salt tablets as needed. (4) UTI (urinary tract infection): Qualifiers: Urinary tract infection type: site unspecified Code(s): N39.0 - Urinary tract infection, site not specified Status: Acute Assessment and Plan: -reportedly started on Macrobid for UTI from her pcp due to a urine culture that was positive and she is symptomatic with dysuria, had not started the macrobid yet - Continue Rocephin here although the patient's urine here was not indicative of an acute infection. No culture pending. This is day #3 of Rocephin IV. Historical UTI's were searched and it is noted that the pt. does have a history of E.coli infections that are sensitive to Rocephin. -suspect patient will no longer need any antibiotic coverage at discharge (5) Essential (primary) hypertension: Code(s): I10 - Essential (primary) hypertension Status: Chronic Assessment and Plan: -stable, continue home meds - Monitoring. (6) Anemia: Code(s): D64.9 - Anemia, unspecified Status: Acute Assessment and Plan: -etiology acute blood loss secondary to recent surgical intervention. -initial CBC that was ordered today showed a hemoglobin of 7.3. This was repeated prior to the administration of 1 unit of packed red blood cells as patient's hemoglobin declined from 10-7.3. Upon repeat CBC her hemoglobin is now noted to be 8.3. The unit of packed red blood cells was canceled at this time we will continue to monitor patient's CBC. (7) Vertigo: Code(s): R42 - Dizziness and giddiness Status: Acute Assessment and Plan: -patient with history of Meniere's disease. Acute etiology Meniere's disease versus hyponatremia versus some other causation. She states she always feels with a certain degree of vertigo, however notes that has gotten worse and she started having fall secondary to it. -CT brain yesterday was negative. -echocardiogram was normal with a normal left ventricular systolic function and ejection fraction of 65-70% with grade 1 diastolic dysfunction. -carotid Dopplers were performed and she has bilaterally less than 50% stenosis. -ENT consult was placed and Dr. Nichols will follow-up with patient as an outpatient upon discharge. -patient has used meclizine in the past for her dizziness, however it is noted by her that it does not help her dizziness and she continually feels tired. -fall precautions (8) Frequent falls: Code(s): R29.6 - Repeated f
--- NOTE | 2021-08-25 11:10 | PC.NURSE ---
called and reported Potassium 3.3 to [place] dropped from 3.6, 10meq ordered, will recheck tomorrow morning.
[2021-08-25] MEDS: SODIUM CHLORIDE 0.9% IV 1,000 ML 125 ML IV CONT (12:28)
--- NOTE | 2021-08-25 14:33 | PM.PNORT ---
Progress Note: A&P Additional Plan POD 2 DOING WELL. PAIN CONTROLLED. CONTINUE PT Subjective Subjective Date/Time Seen: 08/25/21 14:33 POD 2 DOING WELL. NO CALF PAIN. 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[place] INTACT NEG [employer]OM[employer] SIGN Objective Data Vital Signs Vital Signs: Vital Signs - 24 hr 08/24/21 16:08 08/24/21 19:50 08/24/21 20:00 Temperature 36.5 C Pulse Rate 78 77 83 Respiratory Rate 20 18 Blood Pressure 123/70 Pulse Oximetry 95 08/24/21 20:04 08/24/21 20:05 08/24/21 23:48 Temperature 36.4 C Pulse Rate 76 77 Respiratory Rate 20 18 Blood Pressure 118/69 Pulse Oximetry 92 94 08/25/21 01:52 08/25/21 02:01 08/25/21 03:32 Temperature 36.2 C L Pulse Rate 78 72 73 Respiratory Rate 20 20 18 Blood Pressure 129/60 Pulse Oximetry 96 08/25/21 08:00 08/25/21 08:27 08/25/21 09:00 Temperature 36.4 C Pulse Rate 77 78 74 Respiratory Rate 14 18 Blood Pressure 139/68 Pulse Oximetry 95 95 08/25/21 09:07 08/25/21 14:00 Temperature 36.3 C L Pulse Rate 70 75 Respiratory Rate 18 14 Blood Pressure 137/65 Pulse Oximetry 95 95 Intake/Output Intake/Output: Intake & Output 08/22/21 08/23/21 08/24/21 08/25/21 23:59 23:59 23:59 23:59 Intake Total 1000 1250 4348 1650 Output Total 550 1700 500 Balance 7837 007 7280 1150 Meds/Results Medications: Active Medications Generic Name Dose Route Start Last Admin Trade Name Freq PRN Reason Stop Dose Admin Acetaminophen 650 mg 08/22/21 21:14 08/24/21 06:35 Acetaminophen 325 Mg Tablet PO 650 mg Q4H PRN Administration Mild Pain (1-3) or Fever Hydrocodone Bitart/Acetaminophen 1 tab 08/23/21 18:59 08/25/21 09:29 Hydrocodone/Acetaminophen (*Crx) 5-325 Mg Tablet PO 1 tab Q3H PRN Administration Pain Rated 4-6 Albuterol 5 mg 08/23/21 02:00 08/25/21 09:01 Albuterol Sulfate Neb 2.5 Mg/0.5 Ml Inh INHALATION 5 mg Q6HRT STEVE Administration Amitriptyline HCl 50 mg 08/23/21 21:00 08/24/21 21:01 Amitriptyline Hcl 25 Mg Tablet BY MOUTH 50 mg HS STEVE Administration Aspirin 650 mg 08/24/21 09:00 08/25/21 09:14 Aspirin 325 Mg Enteric Tablet PO Not Given DAILY STEVE Carvedilol 25 mg 08/23/21 08:00 08/25/21 08:27 Carvedilol 25 Mg Tablet PO 25 mg BIDWM STEVE Administration Celecoxib 200 mg 08/24/21 08:00 08/25/21 08:28 Celecoxib 200 Mg Capsule PO 200 mg BIDWM STEVE Administration Clonazepam 0.5 mg 08/23/21 06:32 08/23/21 23:25 Clonazepam (*Crx) 0.5 Mg Tablet PO 0.5 mg BID PRN Administration anxiety Famotidine 20 mg 08/23/21 21:00 08/25/21 08:27 Famotidine 20 Mg Tablet PO 20 mg Q12HR STEVE Administration Guanfacine HCl 1 mg 08/23/21 21:00 08/24/21 21:01 Guanfacine Hcl 1 Mg Tablet PO 1 mg HS STEVE Administration Hydrochlorothiazide 25 mg 08/23/21 09:00 08/25/21 08:28 Hydrochlorothiazide 25 Mg Tablet PO 25 mg DAILY STEVE Administration Hydromorphone HCl 1 mg 08/23/21 08:41 08/24/21 08:12 Hydromorphone Hcl Inj (*Crx) 1 Mg/Ml Syr IV PUSH 1 mg Q3H PRN Administration Pain Rated 7-10 Hydroxyzine Pamoate 50 mg 08/23/21 18:59 Hydroxyzine Pamoate 25 Mg Capsule PO Q4H PRN Itching Ceftriaxone Sodium/Dextrose 1 gm in 50 mls @ 100 mls/hr 08/23/21 10:00 08/25/21 09:05 Rocephin 1 Gm/D5w 50 Ml IVPB Infused DAILY STEVE Infusion Sodium Chloride 1,000 mls @ 125 mls/hr 08/23/21 18:59 08/25/21 12:28 Normal Saline Iv IV CONT 125 mls/hr .Q8H STEVE Administration Sodium Chloride 250 mls @ 30 mls/hr 08/25/21 08:16 08/25/21 09:17 Normal Saline Iv IV CONT 08/25/21 16:35 30 mls/hr .Q8H20M STA Administration Ipratropium [place] 0.5 mg 08/23/21 02:00 08/25/21 09:01 Ipratropium Br 0.02% Inh Soln 0.5 Mg/2.5 Ml Vial INHALATION 0.5 mg Q6HRT STEVE Administration Losartan Potassium 100 mg 08/23/21 09:00 08/25/21 08:27 Losartan Potassium 100 M
--- NOTE | 2021-08-25 16:59 | PC.NURSE ---
dressing changed post op day 2, [place]: Post op day 2 - begin [place] Dressing changes. [place]: Post op day 2 - begin [place] Dressing changes.
[2021-08-25] MEDS: AMITRIPTYLINE HCL 25 MG TABLET 50 MG BY MOUTH (20:14)
[2021-08-25] MEDS: guanFACINE HCL 1 MG TABLET PO (20:14)
[2021-08-26] VITALS (13 sets, daily range): BP systolic 134–166; BP diastolic 67–84; PULSE 72–88; RESP 17–18; TEMP 36.4–36.9; O2SAT 90–99
[2021-08-26] MEDS: IPRATROPIUM BR 0.02% INH SOLN 0.5 MG/2.5 ML VIAL INHALATION ×4 (02:00→20:18)
[2021-08-26] MEDS: ALBUTEROL SULFATE NEB 2.5 MG/0.5 ML INH 5 MG INHALATION ×4 (02:00→20:18)
[2021-08-26 08:04] LABS: Basophils Percent Auto 0.5 % (0.2-1.2); Eosinophils Absolute Auto 0.1 K/mm3 (0-0.3); Eosinophils Percent Auto 1.8 % (0-4.4); Hematocrit 22.2 % (37.0-47.0); Hemoglobin 7.4 g/dL (12.0-15.0); Immature Granulocyte Absolute 0.03 K/mm3 (0.00-0.031); Immature Granulocyte Percent A 0.8 % (0-0.5); Lymphocytes Absolute Auto 0.43 K/mm3 (0.9-3.2); Lymphocytes Percent Auto 10.9 % (18.3-44.2); Mean Corpuscular HGB Conc 33.3 g/dl (32-36); Mean Corpuscular Hemoglobin 31.2 pg (26-34); Mean Corpuscular Volume 93.7 fl (80-100); Mean Platelet Volume 8.7 fl (7.4-10.4); Monocytes Absolute Auto 0.1 K/mm3 (0.1-0.6); Monocytes Percent Auto 3.6 % (2.6-8.5); Neutrophils Absolute Auto 3.3 K/mm3 (1.3-6.7); Neutrophils Percent Auto 82.4 % (45.5-73.1); Platelet Count Result 96 k/mm3 (150-375); Red Blood Count 2.37 M/mm3 (4.2-5.4); Red Cell Distribution Width 15.2 % (11.5-14.5); White Blood Count 3.9 K/mm3 (4.5-10.0)
[2021-08-26 08:17] LABS: Alanine Aminotransferase 8 U/L (6-35); Albumin Level 2.9 g/dL (3.5-5.1); Alkaline Phosphatase 113 U/L (38-126); Anion Gap 3 mmol/L (8-16); Aspartate Amino Transferase 21 U/L (14-36); Bilirubin,Total 0.4 mg/dL (0.2-1.3); Blood Urea Nitrogen 6 mg/dL (7-17); Calcium 9.3 mg/dL (8.4-10.2); Carbon Dioxide 26 mmol/L (22-30); Chloride 100 mmol/L (98-107); Estimated Glomerular Filt Rate > 60; Glucose 107 mg/dL (65-110); Magnesium 1.9 mg/dL (1.6-2.3); Potassium 3.6 mmol/L (3.4-5.0); Sodium 129 mmol/L (137-145)
[2021-08-26] MEDS: HYDROcodone/acetaminophen (*CRX) 5-325 MG TABLET 1 TAB PO ×4 (08:22→21:07)
[2021-08-26] MEDS: polyethylene glycoL 3350 17 GM POWD.PACK PO (08:24)
[2021-08-26] MEDS: carvediloL 25 MG TABLET PO ×2 (08:24→17:25)
[2021-08-26] MEDS: FAMOTIDINE 20 MG TABLET PO ×2 (08:24→21:08)
[2021-08-26] MEDS: CELECOXIB 200 MG CAPSULE PO ×2 (08:24→17:25)
[2021-08-26] MEDS: ASPIRIN 325 MG ENTERIC TABLET 650 MG PO (08:24)
[2021-08-26] MEDS: PRAVASTATIN SODIUM 20 MG TABLET PO (08:24)
[2021-08-26] MEDS: POTASSIUM CHLORIDE 10 MEQ TABLET.ER PO (08:24)
[2021-08-26] MEDS: SERTRALINE HCL 50 MG TABLET 200 MG PO (08:24)
[2021-08-26] MEDS: SENNA/DOCUSATE SODIUM TABLET 2 TAB PO ×2 (08:25→17:25)
[2021-08-26] MEDS: PANTOPRAZOLE 40 MG TABLET PO (08:25)
[2021-08-26] MEDS: LOSARTAN POTASSIUM 100 MG TABLET PO (08:25)
[2021-08-26] MEDS: hydroCHLOROthiazide 25 MG TABLET PO (08:25)
[2021-08-26] MEDS: FLUTICASONE/SALMETEROL 230-21 MCG INHALER 1 PUFF 2 PUFF INHALATION ×2 (08:36→20:18)
[2021-08-26] MEDS: SODIUM CHLORIDE 1 GM TABLET PO (09:07)
--- NOTE | 2021-08-26 11:14 | PM.PNORT ---
Progress Note: A&P Additional Plan POD 4 DOING WELL. 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 Objective Data Vital Signs Vital Signs: Vital Signs - 24 hr 08/25/21 14:00 08/25/21 14:40 08/25/21 14:49 Temperature 36.3 C L Pulse Rate 75 75 71 Respiratory Rate 14 18 18 Blood Pressure 137/65 Pulse Oximetry 95 08/25/21 16:14 08/25/21 20:00 08/25/21 20:01 Temperature Pulse Rate 76 79 Respiratory Rate 18 Blood Pressure Pulse Oximetry 94 08/25/21 20:07 08/25/21 20:13 08/25/21 20:53 Temperature 36.4 C L Pulse Rate 75 87 Respiratory Rate 18 18 Blood Pressure 140/72 Pulse Oximetry 87 L 94 08/25/21 21:30 08/26/21 02:02 08/26/21 02:10 Temperature Pulse Rate 78 76 Respiratory Rate 18 18 Blood Pressure Pulse Oximetry 94 08/26/21 04:38 08/26/21 08:24 08/26/21 08:30 Temperature 36.9 C Pulse Rate 77 77 81 Respiratory Rate 18 18 Blood Pressure 166/75 H Pulse Oximetry 99 90 08/26/21 08:39 Temperature Pulse Rate 79 Respiratory Rate 18 Blood Pressure Pulse Oximetry 90 Intake/Output Intake/Output: Intake & Output 08/23/21 08/24/21 08/25/21 08/26/21 23:59 23:59 23:59 23:59 Intake Total 1250 4348 2930 660 Output Total 550 1700 3400 Balance 700 2648 -470 660 Meds/Results Medications: Active Medications Generic Name Dose Route Start Last Admin Trade Name Freq PRN Reason Stop Dose Admin Acetaminophen 650 mg 08/22/21 21:14 08/24/21 06:35 Acetaminophen 325 Mg Tablet PO 650 mg Q4H PRN Administration Mild Pain (1-3) or Fever Hydrocodone Bitart/Acetaminophen 1 tab 08/23/21 18:59 08/26/21 08:22 Hydrocodone/Acetaminophen (*Crx) 5-325 Mg Tablet PO 1 tab Q3H PRN Administration Pain Rated 4-6 Albuterol 5 mg 08/23/21 02:00 08/26/21 08:36 Albuterol Sulfate Neb 2.5 Mg/0.5 Ml Inh INHALATION 5 mg Q6HRT STEVE Administration Amitriptyline HCl 50 mg 08/23/21 21:00 08/25/21 20:14 Amitriptyline Hcl 25 Mg Tablet BY MOUTH 50 mg HS STEVE Administration Aspirin 650 mg 08/24/21 09:00 08/26/21 08:24 Aspirin 325 Mg Enteric Tablet PO 650 mg DAILY STEVE Administration Carvedilol 25 mg 08/23/21 08:00 08/26/21 08:24 Carvedilol 25 Mg Tablet PO 25 mg BIDWM STEVE Administration Celecoxib 200 mg 08/24/21 08:00 08/26/21 08:24 Celecoxib 200 Mg Capsule PO 200 mg BIDWM STEVE Administration Clonazepam 0.5 mg 08/23/21 06:32 08/23/21 23:25 Clonazepam (*Crx) 0.5 Mg Tablet PO 0.5 mg BID PRN Administration anxiety Famotidine 20 mg 08/23/21 21:00 08/26/21 08:24 Famotidine 20 Mg Tablet PO 20 mg Q12HR STEVE Administration Guanfacine HCl 1 mg 08/23/21 21:00 08/25/21 20:14 Guanfacine Hcl 1 Mg Tablet PO 1 mg HS STEVE Administration Hydrochlorothiazide 25 mg 08/23/21 09:00 08/26/21 08:25 Hydrochlorothiazide 25 Mg Tablet PO 25 mg DAILY STEVE Administration Hydromorphone HCl 1 mg 08/23/21 08:41 08/24/21 08:12 Hydromorphone Hcl Inj (*Crx) 1 Mg/Ml Syr IV PUSH 1 mg Q3H PRN Administration Pain Rated 7-10 Hydroxyzine Pamoate 50 mg 08/23/21 18:59 Hydroxyzine Pamoate 25 Mg Capsule PO Q4H PRN Itching Ceftriaxone Sodium/Dextrose 1 gm in 50 mls @ 100 mls/hr 08/23/21 10:00 08/26/21 08:55 Rocephin 1 Gm/D5w 50 Ml IVPB Infused DAILY STEVE Infusion Ipratropium [place] 0.5 mg 08/23/21 02:00 08/26/21 08:35 Ipratropium Br 0.02% Inh Soln 0.5 Mg/2.5 Ml Vial INHALATION 0.5 mg Q6HRT STEVE Administration Losartan Potassium 100 mg 08/23/21 09:00 08/26/21 08:25 Losartan Potassium 100 Mg Tablet PO 100 mg DAILY STEVE Administration Naloxone HCl 0.1 mg 08/23/21 18:59 Naloxone Hcl 0.4 Mg/Ml Vial IV PUSH Q2M PRN Opiate Reversal Ondansetron HCl 4 mg 08/22/21 21:14 Ondansetron Inj 4 Mg/2
--- NOTE | 2021-08-26 11:38 | PM.IMPN ---
Progress Note: A&P Assessment and Plan (1) Intertrochanteric fracture of right hip: Qualifiers: Encounter type: initial encounter Fracture type: closed Fracture alignment: displaced Qualified Code(s): S72.141A - Displaced intertrochanteric fracture of right femur, initial encounter for closed fracture Code(s): S72.141A - Displaced intertrochanteric fracture of right femur, initial encounter for closed fracture Status: Acute Assessment and Plan: - Surgical repair by Dr. Wasserman this is postop day #3. - Surgery to manage all post-operative course including anticoagulation - PT evaluation and management. -to rehabilitation at time of discharge. (2) COPD (chronic obstructive pulmonary disease): Qualifiers: COPD type: emphysema Emphysema type: unspecified Qualified Code(s): J43.9 - Emphysema, unspecified Code(s): J44.9 - Chronic obstructive pulmonary disease, unspecified Status: Acute Assessment and Plan: -stable, no acute issues -continue home meds -nebs prn - Monitor respiratory status. -continue incentive spirometry post surgical intervention. (3) Chronic hyponatremia: Code(s): E87.1 - Hypo-osmolality and hyponatremia Status: Chronic Assessment and Plan: -baseline sodium is in the 120s. Patient's sodium today is 129. I question if this could be contributing to her level of vertigo. Salt tablets 1 g p.o. daily is started and we will re-evaluate metabolic panel in a.m.. -osmolality is ordered. Her urine sodium level is normal at 49, urine osmolality and serum osmolality are both pending. -continue to monitor with metabolic panels. Salt tablets 1 g started p.o. daily. (4) UTI (urinary tract infection): Qualifiers: Urinary tract infection type: site unspecified Code(s): N39.0 - Urinary tract infection, site not specified Status: Acute Assessment and Plan: -reportedly started on Macrobid for UTI from her pcp due to a urine culture that was positive and she is symptomatic with dysuria, had not started the macrobid yet - Continue Rocephin here although the patient's urine here was not indicative of an acute infection. No culture pending. This is day #4 of Rocephin IV. Historical UTI's were searched and it is noted that the pt. does have a history of E.coli infections that are sensitive to Rocephin. -suspect patient will no longer need any antibiotic coverage at discharge. (5) Essential (primary) hypertension: Code(s): I10 - Essential (primary) hypertension Status: Chronic Assessment and Plan: -stable, continue home meds - Monitoring. (6) Anemia: Code(s): D64.9 - Anemia, unspecified Status: Acute Assessment and Plan: -etiology acute blood loss secondary to recent surgical intervention. -initial CBC that was ordered today showed a hemoglobin of 7.3. This was repeated prior to the administration of 1 unit of packed red blood cells as patient's hemoglobin declined from 10-7.3. Upon repeat CBC her hemoglobin is now noted to be 8.3. The unit of packed red blood cells was canceled at this time we will continue to monitor patient's CBC. -hemoglobin this morning has decreased to 7.4. Will repeat in a.m.. (7) Vertigo: Code(s): R42 - Dizziness and giddiness Status: Acute Assessment and Plan: -patient with history of Meniere's disease. Acute etiology Meniere's disease versus hyponatremia versus some other causation. She states she always feels with a certain degree of vertigo, however notes that has gotten worse and she started having fall secondary to it. -CT brain yesterday was negative. -echocardiogram was normal with a normal left ventricular systolic function and ejection fraction of 65-70% with grade 1 diastolic dysfunction. -carotid Dopplers were performed and she has bilaterally less than 50% stenosis. -ENT consult was placed and Dr. Nichols will follow-up with sonali
[2021-08-26] MEDS: AMITRIPTYLINE HCL 25 MG TABLET 50 MG BY MOUTH (21:08)
[2021-08-26] MEDS: guanFACINE HCL 1 MG TABLET PO (21:08)
[2021-08-27] VITALS (15 sets, daily range): BP systolic 135–173; BP diastolic 82–93; PULSE 64–86; RESP 16–18; TEMP 36.6–36.8; O2SAT 83–99
[2021-08-27] MEDS: IPRATROPIUM BR 0.02% INH SOLN 0.5 MG/2.5 ML VIAL INHALATION ×3 (02:14→13:54)
[2021-08-27] MEDS: ALBUTEROL SULFATE NEB 2.5 MG/0.5 ML INH 5 MG INHALATION ×3 (02:14→13:54)
[2021-08-27 07:21] LABS: Basophils Percent Auto 0.3 % (0.2-1.2); Eosinophils Absolute Auto 0.1 K/mm3 (0-0.3); Eosinophils Percent Auto 2.3 % (0-4.4); Hemoglobin 7.5 g/dL (12.0-15.0); Immature Granulocyte Absolute 0.03 K/mm3 (0.00-0.031); Lymphocytes Absolute Auto 0.34 K/mm3 (0.9-3.2); Lymphocytes Percent Auto 11.4 % (18.3-44.2); Mean Corpuscular HGB Conc 34.1 g/dl (32-36); Mean Corpuscular Hemoglobin 31.8 pg (26-34); Mean Corpuscular Volume 93.2 fl (80-100); Mean Platelet Volume 8.5 fl (7.4-10.4); Monocytes Absolute Auto 0.1 K/mm3 (0.1-0.6); Monocytes Percent Auto 4.7 % (2.6-8.5); Neutrophils Absolute Auto 2.4 K/mm3 (1.3-6.7); Neutrophils Percent Auto 80.3 % (45.5-73.1); Platelet Count Result 97 k/mm3 (150-375); Red Blood Count 2.36 M/mm3 (4.2-5.4); Red Cell Distribution Width 15.6 % (11.5-14.5)
[2021-08-27 07:31] LABS: Alanine Aminotransferase 8 U/L (6-35); Albumin Level 2.7 g/dL (3.5-5.1); Alkaline Phosphatase 107 U/L (38-126); Anion Gap 1 mmol/L (8-16); Aspartate Amino Transferase 21 U/L (14-36); Bilirubin,Total 0.5 mg/dL (0.2-1.3); Blood Urea Nitrogen 6 mg/dL (7-17); Calcium 9.7 mg/dL (8.4-10.2); Carbon Dioxide 30 mmol/L (22-30); Chloride 98 mmol/L (98-107); Estimated Glomerular Filt Rate > 60; Glucose 102 mg/dL (65-110); Magnesium 1.9 mg/dL (1.6-2.3); Sodium 129 mmol/L (137-145)
[2021-08-27] MEDS: FLUTICASONE/SALMETEROL 230-21 MCG INHALER 1 PUFF 2 PUFF INHALATION (08:19)
--- NOTE | 2021-08-27 08:30 | PM.IMPN ---
Progress Note: A&P Assessment and Plan (1) Intertrochanteric fracture of right hip: Qualifiers: Encounter type: initial encounter Fracture type: closed Fracture alignment: displaced Qualified Code(s): S72.141A - Displaced intertrochanteric fracture of right femur, initial encounter for closed fracture Code(s): S72.141A - Displaced intertrochanteric fracture of right femur, initial encounter for closed fracture Status: Acute Assessment and Plan: - Surgical repair by Dr. Wasserman this is postop day #3. - Surgery to manage all post-operative course including anticoagulation - PT evaluation and management. -to rehabilitation at time of discharge. - Surgical repair by Dr. Wasserman this is postop day #3. - Surgery to manage all post-operative course including anticoagulation - PT evaluation and management. -to rehabilitation at time of discharge. (2) COPD (chronic obstructive pulmonary disease): Qualifiers: COPD type: emphysema Emphysema type: unspecified Qualified Code(s): J43.9 - Emphysema, unspecified Code(s): J44.9 - Chronic obstructive pulmonary disease, unspecified Status: Acute Assessment and Plan: -stable, no acute issues -continue home meds -nebs prn - Monitor respiratory status. -continue incentive spirometry post surgical intervention. -stable, no acute issues -continue home meds -nebs prn - Monitor respiratory status. -continue incentive spirometry post surgical intervention. (3) Chronic hyponatremia: Code(s): E87.1 - Hypo-osmolality and hyponatremia Status: Chronic Assessment and Plan: -baseline sodium is in the 120s. Patient's sodium today is 129. I question if this could be contributing to her level of vertigo. Salt tablets 1 g p.o. daily is started and we will re-evaluate metabolic panel in a.m.. -osmolality is ordered. Her urine sodium level is normal at 49, urine osmolality and serum osmolality are both pending. -continue to monitor with metabolic panels. Salt tablets 1 g started p.o. daily. -baseline sodium is in the 120s. Patient's sodium today is 129. I question if this could be contributing to her level of vertigo. Salt tablets 1 g p.o. daily is started and we will re-evaluate metabolic panel in a.m.. -osmolality is ordered. Her urine sodium level is normal at 49, urine osmolality and serum osmolality are both pending. -continue to monitor with metabolic panels. Salt tablets 1 g started p.o. daily. (4) UTI (urinary tract infection): Qualifiers: Urinary tract infection type: site unspecified Code(s): N39.0 - Urinary tract infection, site not specified Status: Acute Assessment and Plan: -reportedly started on Macrobid for UTI from her pcp due to a urine culture that was positive and she is symptomatic with dysuria, had not started the macrobid yet - Continue Rocephin here although the patient's urine here was not indicative of an acute infection. No culture pending. This is day #4 of Rocephin IV. Historical UTI's were searched and it is noted that the pt. does have a history of E.coli infections that are sensitive to Rocephin. -suspect patient will no longer need any antibiotic coverage at discharge. -reportedly started on Macrobid for UTI from her pcp due to a urine culture that was positive and she is symptomatic with dysuria, had not started the macrobid yet - Continue Rocephin here although the patient's urine here was not indicative of an acute infection. No culture pending. This is day #4 of Rocephin IV. Historical UTI's were searched and it is noted that the pt. does have a history of E.coli infections that are sensitive to Rocephin. -suspect patient will no longer need any antibiotic coverage at discharge. (5) Essential (primary) hypertension: Code(s): I10 - Essential (primary) hypertension Status: Chronic Assessment and Plan: -stable, continue home meds - Monitoring.
[2021-08-27] MEDS: SERTRALINE HCL 50 MG TABLET 200 MG PO (09:22)
[2021-08-27] MEDS: polyethylene glycoL 3350 17 GM POWD.PACK PO (09:22)
[2021-08-27] MEDS: FAMOTIDINE 20 MG TABLET PO (09:23)
[2021-08-27] MEDS: LOSARTAN POTASSIUM 100 MG TABLET PO (09:23)
[2021-08-27] MEDS: SENNA/DOCUSATE SODIUM TABLET 2 TAB PO ×2 (09:23→16:23)
[2021-08-27] MEDS: carvediloL 25 MG TABLET PO ×2 (09:23→16:23)
[2021-08-27] MEDS: POTASSIUM CHLORIDE 10 MEQ TABLET.ER PO (09:23)
[2021-08-27] MEDS: PANTOPRAZOLE 40 MG TABLET PO (09:23)
[2021-08-27] MEDS: ASPIRIN 325 MG ENTERIC TABLET 650 MG PO (09:23)
[2021-08-27] MEDS: CELECOXIB 200 MG CAPSULE PO ×2 (09:24→16:23)
[2021-08-27] MEDS: hydroCHLOROthiazide 25 MG TABLET PO (09:24)
[2021-08-27] MEDS: SODIUM CHLORIDE 1 GM TABLET PO (09:24)
[2021-08-27] MEDS: PRAVASTATIN SODIUM 20 MG TABLET PO (09:24)
[2021-08-27] MEDS: HYDROcodone/acetaminophen (*CRX) 5-325 MG TABLET 1 TAB PO (11:11)
--- NOTE | 2021-08-27 13:04 | PM.PNORT ---
Progress Note: A&P Additional Plan POD 4 DOING WELL S/P RIGHT HIP TROCHANTERIC NARAYAN INSERTION. SHE WILL BE DISCHARGED TODAY AND WILL F/U WITH DR GOOD IN 6 WEEKS. 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 Objective Data Vital Signs Vital Signs: Vital Signs - 24 hr 08/26/21 14:00 08/26/21 15:00 08/26/21 15:05 Temperature 36.7 C Pulse Rate 76 88 82 Respiratory Rate 18 18 18 Blood Pressure 134/67 Pulse Oximetry 95 08/26/21 17:25 08/26/21 20:19 08/26/21 20:28 Temperature Pulse Rate 82 72 74 Respiratory Rate 18 18 Blood Pressure Pulse Oximetry 92 08/26/21 22:00 08/27/21 02:14 08/27/21 02:18 Temperature 36.4 C Pulse Rate 73 83 Respiratory Rate 17 18 Blood Pressure 158/84 H Pulse Oximetry 94 83 L 08/27/21 02:22 08/27/21 03:05 08/27/21 05:40 Temperature 36.8 C Pulse Rate 73 74 Respiratory Rate 16 18 Blood Pressure 153/93 H Pulse Oximetry 92 99 08/27/21 08:10 08/27/21 08:22 08/27/21 09:23 Temperature Pulse Rate 80 81 64 Respiratory Rate 18 18 Blood Pressure Pulse Oximetry 92 Intake/Output Intake/Output: Intake & Output 08/24/21 08/25/21 08/26/21 08/27/21 23:59 23:59 23:59 23:59 Intake Total 4348 2930 1740 970 Output Total 1700 3400 1800 1200 Balance 2648 -470 -60 -230 Meds/Results Medications: Active Medications Generic Name Dose Route Start Last Admin Trade Name Freq PRN Reason Stop Dose Admin Acetaminophen 650 mg 08/22/21 21:14 08/24/21 06:35 Acetaminophen 325 Mg Tablet PO 650 mg Q4H PRN Administration Mild Pain (1-3) or Fever Hydrocodone Bitart/Acetaminophen 1 tab 08/23/21 18:59 08/27/21 11:11 Hydrocodone/Acetaminophen (*Crx) 5-325 Mg Tablet PO 1 tab Q3H PRN Administration Pain Rated 4-6 Albuterol 5 mg 08/23/21 02:00 08/27/21 08:19 Albuterol Sulfate Neb 2.5 Mg/0.5 Ml Inh INHALATION 5 mg Q6HRT STEVE Administration Amitriptyline HCl 50 mg 08/23/21 21:00 08/26/21 21:08 Amitriptyline Hcl 25 Mg Tablet BY MOUTH 50 mg HS STEVE Administration Aspirin 650 mg 08/24/21 09:00 08/27/21 09:23 Aspirin 325 Mg Enteric Tablet PO 650 mg DAILY STEVE Administration Carvedilol 25 mg 08/23/21 08:00 08/27/21 09:23 Carvedilol 25 Mg Tablet PO 25 mg BIDWM STEVE Administration Celecoxib 200 mg 08/24/21 08:00 08/27/21 09:24 Celecoxib 200 Mg Capsule PO 200 mg BIDWM STEVE Administration Clonazepam 0.5 mg 08/23/21 06:32 08/23/21 23:25 Clonazepam (*Crx) 0.5 Mg Tablet PO 0.5 mg BID PRN Administration anxiety Famotidine 20 mg 08/23/21 21:00 08/27/21 09:23 Famotidine 20 Mg Tablet PO 20 mg Q12HR STEVE Administration Guanfacine HCl 1 mg 08/23/21 21:00 08/26/21 21:08 Guanfacine Hcl 1 Mg Tablet PO 1 mg HS STEVE Administration Hydrochlorothiazide 25 mg 08/23/21 09:00 08/27/21 09:24 Hydrochlorothiazide 25 Mg Tablet PO 25 mg DAILY STEVE Administration Hydromorphone HCl 1 mg 08/23/21 08:41 08/24/21 08:12 Hydromorphone Hcl Inj (*Crx) 1 Mg/Ml Syr IV PUSH 1 mg Q3H PRN Administration Pain Rated 7-10 Hydroxyzine Pamoate 50 mg 08/23/21 18:59 Hydroxyzine Pamoate 25 Mg Capsule PO Q4H PRN Itching Ceftriaxone Sodium/Dextrose 1 gm in 50 mls @ 100 mls/hr 08/23/21 10:00 08/27/21 09:22 Rocephin 1 Gm/D5w 50 Ml IVPB 100 mls/hr DAILY STEVE Administration Ipratropium [place] 0.5 mg 08/23/21 02:00 08/27/21 08:19 Ipratropium Br 0.02% Inh Soln 0.5 Mg/2.5 Ml Vial INHALATION 0.5 mg Q6HRT STEVE Administration Losartan Potassium 100 mg 08/23/21 09:00 08/27/21 09:23 Losartan Potassium 100 Mg Tablet PO 100 mg DAILY STEVE Administration Naloxone HCl 0.1 mg 08/23/21 18:59 Naloxone Hcl 0.4 Mg/Ml Vial IV PUSH Q2M PRN Opiate Reversal Ondansetron HCl 4 mg 08/22/21 21:14 Ondansetron Inj 4
[2021-08-27 14:04] LABS: Iron 83 ug/dL (37-170)
[2021-08-27 14:13] LABS: Percent Iron Saturation 36 % (20-50)
--- NOTE | 2021-08-27 14:26 | PM.DS ---
DS: Discharge Diagnosis Discharge Diagnosis (1) Intertrochanteric fracture of right hip: Qualifiers: Encounter type: initial encounter Fracture alignment: displaced Fracture type: closed Qualified Code(s): S72.141A - Displaced intertrochanteric fracture of right femur, initial encounter for closed fracture Code(s): S72.141A - Displaced intertrochanteric fracture of right femur, initial encounter for closed fracture Status: Acute Assessment and Plan: - Surgical repair by Dr. Wasserman this is postop day #3. - Surgery to manage all post-operative course including anticoagulation - PT evaluation and management. -to rehabilitation at time of discharge. - Surgical repair by Dr. Wasserman this is postop day #3. - Surgery to manage all post-operative course including anticoagulation - PT evaluation and management. -to rehabilitation at time of discharge. (2) COPD (chronic obstructive pulmonary disease): Qualifiers: COPD type: emphysema Emphysema type: unspecified Qualified Code(s): J43.9 - Emphysema, unspecified Code(s): J44.9 - Chronic obstructive pulmonary disease, unspecified Status: Acute Assessment and Plan: -stable, no acute issues -continue home meds -nebs prn - Monitor respiratory status. -continue incentive spirometry post surgical intervention. -stable, no acute issues -continue home meds -nebs prn - Monitor respiratory status. -continue incentive spirometry post surgical intervention. (3) Chronic hyponatremia: Code(s): E87.1 - Hypo-osmolality and hyponatremia Status: Chronic Assessment and Plan: -baseline sodium is in the 120s. Patient's sodium today is 129. I question if this could be contributing to her level of vertigo. Salt tablets 1 g p.o. daily is started and we will re-evaluate metabolic panel in a.m.. -osmolality is ordered. Her urine sodium level is normal at 49, urine osmolality and serum osmolality are both pending. -continue to monitor with metabolic panels. Salt tablets 1 g started p.o. daily. -baseline sodium is in the 120s. Patient's sodium today is 129. I question if this could be contributing to her level of vertigo. Salt tablets 1 g p.o. daily is started and we will re-evaluate metabolic panel in a.m.. -osmolality is ordered. Her urine sodium level is normal at 49, urine osmolality and serum osmolality are both pending. -continue to monitor with metabolic panels. Salt tablets 1 g started p.o. daily. (4) UTI (urinary tract infection): Qualifiers: Urinary tract infection type: site unspecified Code(s): N39.0 - Urinary tract infection, site not specified Status: Acute Assessment and Plan: -reportedly started on Macrobid for UTI from her pcp due to a urine culture that was positive and she is symptomatic with dysuria, had not started the macrobid yet - Continue Rocephin here although the patient's urine here was not indicative of an acute infection. No culture pending. This is day #4 of Rocephin IV. Historical UTI's were searched and it is noted that the pt. does have a history of E.coli infections that are sensitive to Rocephin. -suspect patient will no longer need any antibiotic coverage at discharge. -reportedly started on Macrobid for UTI from her pcp due to a urine culture that was positive and she is symptomatic with dysuria, had not started the macrobid yet - Continue Rocephin here although the patient's urine here was not indicative of an acute infection. No culture pending. This is day #4 of Rocephin IV. Historical UTI's were searched and it is noted that the pt. does have a history of E.coli infections that are sensitive to Rocephin. -suspect patient will no longer need any antibiotic coverage at discharge. (5) Essential (primary) hypertension: Code(s): I10 - Essential (primary) hypertension Status: Chronic Assessment and Plan: -stable, continue home meds - Monitori
[2021-08-27 16:43] LABS: EDCOVIDSCREEN Negative (Negative)
--- NOTE | 2021-08-27 18:24 | WPDCN ---
Assessment and Plan Assessment and plan (1) Nasal folliculitis: Code(s): L73.9 - Follicular disorder, unspecified Status: Acute Assessment and Plan: Unsure if these have been performed but recommend ultrasound of carotids EKG/cardiac evaluation and attempt to normalize lab values including hemoglobin sodium. If patient has persistent issues following exclusion of metabolic cardiac carotid etiologies would consider Meniere attacks. Would not recommend low-sodium diet given hyponatremia. Recommend mupirocin b.i.d., prescribed common anterior nasal passages. Follow-up with me as needed for further evaluation. (2) Vertigo: Code(s): R42 - Dizziness and giddiness Status: Acute HPI Data of Consult Date/Time: 08/27/21 18:24 Requesting Physician: TY Polo Primary Care Provider: Sonya Verde MD Consult Narrative Narrative: Poonam Sousa is a 71 year old female with a history of Meniere's. Reports that the attacks, is falls denies vertigo reports almost like blacking out syncopal episodes. Review of Systems Review of Systems: All systems reviewed & are unremarkable except as noted in HPI and below PMFSH Past Medical History Medical History (Updated 08/27/21 @ 18:27 by Cornelio Nichols MD) Actinic keratosis of multiple sites of head and neck Anxiety Asthma with COPD Chronic hyponatremia Essential (primary) hypertension Hemochromatosis Hyperlipidemia, unspecified Intertrochanteric fracture of right hip Major depressive disorder, recurrent, in remission, unspecified Meniere's disease, bilateral Nicotine dependence, other tobacco product, uncomplicated Osteoporosis Took Fosamax 2014 - 11/2019 Polyosteoarthritis, unspecified Postmenopausal Presence of implanted infusion pump Syncope and collapse Ventral hernia Surgical History Surgical History History of carpal tunnel release History of tonsillectomy History of ventral hernia repair Previous back surgery Family History Family History Sibling Patient's sister is in good health Family history of malignant neoplasm Breast cancer, Onset Age: 72 Lorenza in 06/2013 Heart disease brother Melanoma in situ of cheek, Onset Age: 68 brother: Gregor @ 69 Mother Family history of lung cancer, Onset Age: 65 oat cell carcinoma: dx'd passed @ 65 y/o Patient's mother is Family history of malignant neoplasm Hypertension Depression Father , from kidney failure @ 90 y/o: lived w/ his second in [place] Family history of congenital heart disease Family history of cardiovascular disease, Onset Age: 91 Angina at rest Heart disease Social History Social History Smoking packs per day: 0.75 Smoking cigarettes per day: 15.0 Years smoked: 54 Smoking pack-years: 40.50 Smoking status: Current every day smoker Tobacco type: cigarettes Second hand tobacco smoke exposure: Yes Alcohol intake: never Alcohol use details: pt states that she has no alcoholic beverages Substance use: never Additional living arrangements comments: passed recently May 2021, now lives alone but is selling house and moving to [facility] with her daughter Additional occupation/education comments: homemaker Gender identity (if verbalized by the patient): Female Spiritual care concerns: No Agree to blood products: Yes Meds Home Medications and Allergies Home Medications Medication Instructions Recorded Confirmed Type guanfacine 1 mg tablet 1 mg PO .COMPLEX 03/16/19 08/22/21 History Calcium 600 + D(3) 600 tablet DAILY 04/26/19 08/22/21 History cholecalciferol (vitamin D3) 5,000 unit PO DAILY 04/26/19 08/22/21 History hydrochlorothiazide 25 mg tablet 25 mg PO DAILY
[2021-08-27 19:06] LABS: Osmolality, Urine 266 mOsm/kg (50-1200)
--- NOTE | 2021-08-27 23:24 | PM.IMPN ---
Progress Note: A&P Assessment and Plan (1) Intertrochanteric fracture of right hip: Qualifiers: Encounter type: initial encounter Fracture alignment: displaced Fracture type: closed Qualified Code(s): S72.141A - Displaced intertrochanteric fracture of right femur, initial encounter for closed fracture Code(s): S72.141A - Displaced intertrochanteric fracture of right femur, initial encounter for closed fracture Status: Acute Assessment and Plan: - Surgical repair by Dr. Wasserman this is postop day #4 - Surgery to manage all post-operative course including anticoagulation - PT evaluation and management. -to rehabilitation at time of discharge. -Hgb 7's , stable. CBC after discharge in 3-5 days. no fevers, WBC 3.9, 3.0 (2) COPD (chronic obstructive pulmonary disease): Qualifiers: COPD type: emphysema Emphysema type: unspecified Qualified Code(s): J43.9 - Emphysema, unspecified Code(s): J44.9 - Chronic obstructive pulmonary disease, unspecified Status: Acute Assessment and Plan: -stable, no acute issues -continue home meds -nebs prn - Monitor respiratory status. -continue incentive spirometry post surgical intervention. . (3) Chronic hyponatremia: Code(s): E87.1 - Hypo-osmolality and hyponatremia Status: Chronic Assessment and Plan: -baseline sodium is in the 120s. Patient's sodium today is 129. I too question if this could be contributing to her level of vertigo. Salt tablets 1 g p.o. daily was started -osmolality is ordered. Her urine sodium level is normal at 49, urine osmolality and serum osmolality -continue to monitor with metabolic panels. Salt tablets 1 g started p.o. daily. -check orthostatic BPs. -ENT consult for fall/dizziness/vertigo/Menier's (4) UTI (urinary tract infection): Qualifiers: Urinary tract infection type: site unspecified Code(s): N39.0 - Urinary tract infection, site not specified Status: Acute Assessment and Plan: -reportedly started on Macrobid for UTI from her pcp due to a urine culture that was positive and she is symptomatic with dysuria, had not started the macrobid yet - Continue Rocephin here although the patient's urine here was not indicative of an acute infection. No culture pending. This is day #5 of Rocephin IV. Historical UTI's were searched and it is noted that the pt. does have a history of E.coli infections that are sensitive to Rocephin. -suspect patient will no longer need any antibiotic coverage at discharge. (5) Essential (primary) hypertension: Code(s): I10 - Essential (primary) hypertension Status: Chronic Assessment and Plan: -stable, continue home meds - Monitoring. (6) Anemia: Code(s): D64.9 - Anemia, unspecified Status: Acute Assessment and Plan: -etiology acute blood loss secondary to recent surgical intervention. -initial CBC that was ordered today showed a hemoglobin of 7.3. This was repeated prior to the administration of 1 unit of packed red blood cells as patient's hemoglobin declined from 10-7.3. Upon repeat CBC her hemoglobin is now noted to be 8.3. The unit of packed red blood cells was canceled at this time we will continue to monitor patient's CBC. -hemoglobin this morning has decreased to 7.4. Will repeat in a.m.. (7) Vertigo: Code(s): R42 - Dizziness and giddiness Status: Acute Assessment and Plan: -patient with history of Meniere's disease. Acute etiology Meniere's disease versus hyponatremia versus some other causation. She states she always feels with a certain degree of vertigo, however notes that has gotten worse and she started having fall secondary to it. -Added Mupirocin -CT brain yesterday was negative. -echocardiogram was normal with a normal left ventricular systolic function and ejection fraction of 65-70% with grade 1 diastolic dysfunction. -carotid Dopplers were perfo
[2021-08-30 22:20] LABS: Red Blood Cell Folate 465 ng/mL RBC (>280)
--- NOTE | 2021-09-02 17:54 | PM.DS ---
DS: Admitting Diagnosis Discharge Date 08/27/21 Admitting Diagnosis Fall with hip/trochanter fracture. DS: Discharge Diagnosis Discharge Diagnosis (1) Intertrochanteric fracture of right hip: Qualifiers: Encounter type: initial encounter Fracture type: closed Fracture alignment: displaced Qualified Code(s): S72.141A - Displaced intertrochanteric fracture of right femur, initial encounter for closed fracture Code(s): S72.141A - Displaced intertrochanteric fracture of right femur, initial encounter for closed fracture Status: Acute Assessment and Plan: - Surgical repair by Dr. Wasserman this is postop day #4 - Surgery to manage all post-operative course including anticoagulation - PT evaluation and management. -to rehabilitation at time of discharge. -Hgb 7's , stable. CBC after discharge in 3-5 days. no fevers, WBC 3.9, 3.0 (2) COPD (chronic obstructive pulmonary disease): Qualifiers: COPD type: emphysema Emphysema type: unspecified Qualified Code(s): J43.9 - Emphysema, unspecified Code(s): J44.9 - Chronic obstructive pulmonary disease, unspecified Status: Acute Assessment and Plan: -stable, no acute issues -continue home meds -nebs prn - Monitor respiratory status. -continue incentive spirometry post surgical intervention. . (3) Chronic hyponatremia: Code(s): E87.1 - Hypo-osmolality and hyponatremia Status: Chronic Assessment and Plan: -baseline sodium is in the 120s. Patient's sodium today is 129. I too question if this could be contributing to her level of vertigo. Salt tablets 1 g p.o. daily was started -osmolality is ordered. Her urine sodium level is normal at 49, urine osmolality and serum osmolality -continue to monitor with metabolic panels. Salt tablets 1 g started p.o. daily. -check orthostatic BPs. -ENT consult for fall/dizziness/vertigo/Menier's (4) UTI (urinary tract infection): Qualifiers: Urinary tract infection type: site unspecified Code(s): N39.0 - Urinary tract infection, site not specified Status: Acute Assessment and Plan: -reportedly started on Macrobid for UTI from her pcp due to a urine culture that was positive and she is symptomatic with dysuria, had not started the macrobid yet - Continue Rocephin here although the patient's urine here was not indicative of an acute infection. No culture pending. This is day #5 of Rocephin IV. Historical UTI's were searched and it is noted that the pt. does have a history of E.coli infections that are sensitive to Rocephin. -suspect patient will no longer need any antibiotic coverage at discharge. (5) Essential (primary) hypertension: Code(s): I10 - Essential (primary) hypertension Status: Chronic Assessment and Plan: -stable, continue home meds - Monitoring. (6) Anemia: Code(s): D64.9 - Anemia, unspecified Status: Acute Assessment and Plan: -etiology acute blood loss secondary to recent surgical intervention. -initial CBC that was ordered today showed a hemoglobin of 7.3. This was repeated prior to the administration of 1 unit of packed red blood cells as patient's hemoglobin declined from 10-7.3. Upon repeat CBC her hemoglobin is now noted to be 8.3. The unit of packed red blood cells was canceled at this time we will continue to monitor patient's CBC. -hemoglobin this morning has decreased to 7.4. Will repeat in a.m.. (7) Vertigo: Code(s): R42 - Dizziness and giddiness Status: Acute Assessment and Plan: -patient with history of Meniere's disease. Acute etiology Meniere's disease versus hyponatremia versus some other causation. She states she always feels with a certain degree of vertigo, however notes that has gotten worse and she started having fall secondary to it. -Added Mupirocin -CT brain yesterday was negative. -echocardiogram was normal with a normal left ventricul
== END 2021-08-27 19:20 | DRG 481 ==
LOC: ANHED 21:14 → ANH3MEDSUR 08-23 04:20
PROVIDERS: Nurse Practitioner; Orthopaedic Surgery; Physician Assistant; Admitting Provider Internal Medicine; Emergency Provider Family Medicine; PCP Family Medicine; Visit Provider Nurse Practitioner Adult Health
PROC: 0QS636Z Reposition Right Upper Femur with Intramedullary Internal Fixation Device, Percutaneous Approach (ICD-10-PCS; CPT 27245; principal; 2021-08-23 16:00)
DX: S72.141A Displaced intertrochanteric fracture of right femur, initial encounter for closed fracture (principal); E87.1 Hypo-osmolality and hyponatremia; D62 Acute posthemorrhagic anemia; N39.0 Urinary tract infection, site not specified; Z20.822 Contact with and (suspected) exposure to COVID-19; M81.0 Age-related osteoporosis without current pathological fracture; F41.9 Anxiety disorder, unspecified; F32.5 Major depressive disorder, single episode, in full remission; M15.9 Polyosteoarthritis, unspecified; J44.9 Chronic obstructive pulmonary disease, unspecified; E78.5 Hyperlipidemia, unspecified; F17.210 Nicotine dependence, cigarettes, uncomplicated; E83.119 Hemochromatosis, unspecified; Z79.82 Long term (current) use of aspirin; H81.09 Meniere's disease, unspecified ear; R29.6 Repeated falls; W19.XXXA Unspecified fall, initial encounter
CPT/HCPCS: 36415; 51702; 70450; 71045; 73502; 80048; 80053; 81001; 82728; 82747; 83540; 83550; 83735; 83930; 83935; 84300; 85025; 85027; 85055; 85610; 86850; 86900; 86901; 87426; 93005; 93306; 93880; 94640; 96361; 96374; 97110; 97116; 97161; 97165; 97530; 97535; 99285; A9270; C1713; C9803; J0690; J0696; J1100; J1170; J1885; J2270; J2405; J2704; J3010; J7030; J7050; J7120; U0003; U0005

== ENCOUNTER 2021-09-18 15:42 | Outpatient (CLI) | payer OTHER, SELFPAY ==
--- NOTE | ~2021-09-18 | US_ITS ---
EXAMINATION: US venous doppler LE RT DATE: 09/18/2021 16:30 INDICATION: Right lower limb swelling and pain. TECHNIQUE: Grayscale ultrasound images without and with compression and Doppler ultrasound images of the right lower extremity veins were obtained. COMPARISON: None. FINDINGS: The visualized portions of right common femoral vein, profunda (deep) femoral vein, femoral vein, pop liteal vein, peroneal trunk, posterior tibial veins, peroneal veins, gastrocnemius vein and greater s aphenous vein outflow are patent. And mild subcutaneous edema about the right calf. IMPRESSION: 1. No deep venous thrombosis in the right lower limb. Reviewed, dictated and finalized at location [facility].
== END 2021-09-18 15:43 | disposition home or self-care (01) ==
LOC: ANHIMG 15:42
PROVIDERS: PCP Family Medicine; Visit Provider Nurse Practitioner Family
DX: M62.89 Other specified disorders of muscle (principal); M79.604 Pain in right leg; R60.0 Localized edema
CPT/HCPCS: 93971

== ENCOUNTER 2022-08-09 13:02 | Emergency (ER) | payer OTHER, SELFPAY ==
--- NOTE | ~2022-08-09 | CT_ITS ---
EXAMINATION: CT brain wo con DATE: 08/09/2022 13:45 INDICATION: Left hand paresis for 5 minutes TECHNIQUE: Computed tomography (CT) of the head was performed without intravenous contrast. The mA wa s adjusted according to patient size. Iterative reconstruction technique was employed. Exam dose: 60 5.33 mGy-cm total exam DLP. COMPARISON: 08/24/2021 CT brain FINDINGS: Bilateral carotid siphon internal carotid artery calcification. There is nonspecific dimin ished attenuation of the cerebral white matter, likely due to chronic small vessel ischemic changes. There is central and cortical cerebral and cerebellar moderate atrophy. No intracranial mass lesion or hemorrhage, midline shift or mass effect. No subdural or epidural hematoma. No skull fracture or bone destruction. The mastoid air cells and paranasal sinuses are normally developed and aerated. No fracture or bone destruction of the cranial vault. IMPRESSION: Cerebral atherosclerosis and chronic small vessel ischemic changes of the cerebral white matter Moderate central and cortical cerebral and cerebellar atrophy No acute intracranial finding. No cerebrovascular accident is detected Reviewed, dictated and finalized at [facility]. Reviewed, dictated and finalized at location [facility].
[2022-08-09 13:16] VITALS: BP 144/71; PULSE 70; RESP 16; TEMP 36.6; O2SAT 98
--- NOTE | 2022-08-09 13:25 | ECG_ITS ---
Measurements Intervals [place] Rate: 67 P: 60 MS: 155 QRS: 28 QRSD: 102 T: 52 QT: 408 QTc: 432 Interpretive Statements SINUS RHYTHM MODERATE VOLTAGE CRITERIA FOR LVH, CONSIDER NORMAL VARIANT [MEETS CRITERIA IN ONE OF: R(aVL), S(V1), R(V5), R(V5/V6)+S(V1)] COMPARED TO ECG 08/22/2021 19:43:09 NO SIGNIFICANT CHANGES Electronically Signed On 08-09-2022 15:42:15 CDT by Liu Yu M.D.
[2022-08-09 13:28] VITALS: BP 136/74; PULSE 70; RESP 18; O2SAT 99
[2022-08-09 13:55] LABS: Basophils Percent Auto 0.6 % (0.2-1.2); Eosinophils Absolute Auto 0.1 K/mm3 (0-0.3); Eosinophils Percent Auto 1.7 % (0-4.4); Hematocrit 36.5 % (37.0-47.0); Hemoglobin 12.7 g/dL (12.0-15.0); Immature Granulocyte Absolute 0.01 K/mm3 (0.00-0.031); Immature Granulocyte Percent A 0.2 % (0-0.5); Lymphocytes Absolute Auto 0.58 K/mm3 (0.9-3.2); Lymphocytes Percent Auto 10.9 % (18.3-44.2); Mean Corpuscular HGB Conc 34.8 g/dl (32-36); Mean Corpuscular Hemoglobin 30.6 pg (26-34); Mean Platelet Volume 8.9 fl (7.4-10.4); Monocytes Absolute Auto 0.4 K/mm3 (0.1-0.6); Neutrophils Absolute Auto 4.2 K/mm3 (1.3-6.7); Neutrophils Percent Auto 79.6 % (45.5-73.1); Platelet Count Result 144 k/mm3 (150-375); Red Blood Count 4.15 M/mm3 (4.2-5.4); Red Cell Distribution Width 13.3 % (11.5-14.5); White Blood Count 5.3 K/mm3 (4.5-10.0)
[2022-08-09 14:00] VITALS: PULSE 69; RESP 19; O2SAT 98
[2022-08-09 14:03] LABS: Alanine Aminotransferase 13 U/L (6-35); Albumin Level 4.3 g/dL (3.5-5.1); Alkaline Phosphatase 127 U/L (38-126); Anion Gap 6 mmol/L (8-16); Aspartate Amino Transferase 21 U/L (14-36); Bilirubin,Total 1.1 mg/dL (0.2-1.3); Blood Urea Nitrogen 15 mg/dL (7-17); Carbon Dioxide 26 mmol/L (22-30); Chloride 98 mmol/L (98-107); Estimated CRCL calculation 74 ml/min; Estimated Glomerular Filt Rate > 60; Glucose 95 mg/dL (65-110); Potassium 4.6 mmol/L (3.4-5.0); Sodium 130 mmol/L (137-145)
[2022-08-09 14:05] LABS: INR 1.2; Prothrombin Time 14.7 Seconds (11.1-14.7)
[2022-08-09 14:06] LABS: Partial Thromboplastin Time 40.4 SECONDS (22.3-36.8)
[2022-08-09 14:43] LABS: Appearance Urine Clear (Clear); Bacteria Urine None Seen /hpf; Bilirubin Urine Negative (Negative); Blood Urine Negative (Negative); Color Urine Dark Yellow (Yellow); Glucose Urine UA Negative (Negative); Ketones Urine Negative (Negative); Leukocyte Esterase Ur 2+ LEU/UL (Negative); Nitrate Urine Negative (Negative); Non Pathogenic Casts 0-2; Protein Urine Negative (Negative); RBC Urine 0-2 /hpf (0-2); Specific Grav Ur 1.022 (1.001-1.035); Squamous Epithelial Cell Urine Moderate /hpf (Few)
--- NOTE | 2022-08-09 14:49 | ED.GENADULT ---
HPI - General Adult General Chief complaint: Neuro Symptoms/Deficit Stated complaint: weakness Time Seen by Provider: 08/09/22 13:25 History of Present Illness HPI narrative: 72-year-old female presented to the emergency department for evaluation of left arm weakness. Patient states approximate 30 minutes prior to arrival she was riding her car and went to take off her seatbelt and found that she had numbness of her left arm. Patient states that her sister lifted her arm and it dropped into the seat. Patient reports the symptoms lasted approximately 5 minutes and then resolved. Patient has no prior history of TIA or CVA. Patient is currently on immunotherapy for an underlying lung cancer and gets her cancer treatment at the [facility]. Related Data Home Medications Medication Instructions Recorded Confirmed guanfacine 1 mg tablet 1 mg PO .COMPLEX 03/16/19 10/09/21 calcium carbonate-vitamin D3 600 600 tablet DAILY 04/26/19 10/09/21 mg-125 unit tablet (Calcium) cholecalciferol (vitamin D3) 125 5,000 unit PO DAILY 04/26/19 10/09/21 mcg (5,000 unit) disintegrating tablet Allergies Allergy/AdvReac Type Severity Reaction Status Date / Time No Known Allergies Allergy Verified 10/30/21 11:31 Review of Systems Review of Systems: All systems reviewed & are unremarkable except as noted in HPI and below PMFSH Past Medical History Medical History (Updated 08/09/22 @ 15:58 by Romario Macedo MD) Actinic keratosis of multiple sites of head and neck Anemia Anxiety Asthma with COPD Cellulitis Chronic hyponatremia COPD (chronic obstructive pulmonary disease) Essential (primary) hypertension Frequent falls Hemochromatosis Hip fracture Hx of fracture of right hip Hyperlipidemia, unspecified Intertrochanteric fracture of right hip Lower extremity edema Major depressive disorder, recurrent, in remission, unspecified Meniere's disease, bilateral Nasal folliculitis Nicotine dependence, other tobacco product, uncomplicated Osteoporosis Took Fosamax 11/2019 Polyosteoarthritis, unspecified Postmenopausal Presence of implanted infusion pump Primary stress urinary incontinence Skin lesion Syncope and collapse UTI (urinary tract infection) Ventral hernia Vertigo Surgical History Surgical History History of carpal tunnel release History of hip surgery 2021 History of tonsillectomy History of ventral hernia repair Previous back surgery Family History Family History Sibling Patient's sister is in good health Family history of malignant neoplasm Breast cancer, Onset Age: 72 Lorenza in 06/2013 Heart disease brother Melanoma in situ of cheek, Onset Age: 68 brother: Gregor @ 69 Mother Family history of lung cancer, Onset Age: 65 oat cell carcinoma: dx'd passed @ 65 y/o Patient's mother is Family history of malignant neoplasm Hypertension Depression Father , from kidney failure @ 90 y/o: lived w/ his second in [place] Family history of congenital heart disease Family history of cardiovascular disease, Onset Age: 91 Angina at rest Heart disease Social History Social History Smoking packs per day: 1 Smoking cigarettes per day: 20.0 Years smoked: 25 Smoking pack-years: 25.00 Smoking status: Current every day smoker Second hand tobacco smoke exposure: Yes Alcohol intake: never Alcohol use details: pt states that she has no alcoholic beverages Substance use: never Living arrangements: with family Additional living arrangements comments: passed recently May 2021, now lives alone but is selling house and moving to [facility] with her daughter Occupation/Education: other Additional occupation/education comments: homemaker Gender identity (if
[2022-08-09 14:52] LABS: Add Urine Microscopic? YES
[2022-08-09 15:00] VITALS: BP 130/74; PULSE 67; RESP 19; O2SAT 97
[2022-08-09 15:55] VITALS: BP 130/70; PULSE 67; RESP 18; O2SAT 100
== END 2022-08-09 16:11 | disposition home or self-care (01) ==
PROVIDERS: Emergency Provider Emergency Medicine
DX: G45.9 Transient cerebral ischemic attack, unspecified (principal); C34.90 Malignant neoplasm of unspecified part of unspecified bronchus or lung; J44.9 Chronic obstructive pulmonary disease, unspecified; I10 Essential (primary) hypertension; E78.5 Hyperlipidemia, unspecified; F17.210 Nicotine dependence, cigarettes, uncomplicated
CPT/HCPCS: 36415; 70450; 80053; 81001; 85025; 85610; 85730; 87086; 87088; 93005; 99284